=== PATIENT | female | born 1960 | race Caucasian/White ===

== ENCOUNTER 2016-07-29 15:54 | Emergency (ER) | payer MEDICARE, OTHER ==
[~2016-07-29] VITALS: Ht 175.3 cm; Wt 160.0 kg
[~2016-07-29 15:54] MED LIST: AMBI10TA PO; AMLO5 PO; GABA600T PO; PRAD150C PO
[2016-07-29 15:56] VITALS: BP 134/71; PULSE 86; RESP 16; TEMP 97.5; O2SAT 95
--- NOTE | 2016-07-29 16:33 | PD ---
HPI Chief Complaint: Chest Pain Time Seen by Provider: 16:33 Travel History International Travel<30 days: No Contact w/Intl Traveler<30days: No Traveled to known affect area: No History of Present Illness HPI 55-year-old female with history of osteoarthritis and PE in June of this year, currently on Pradaxa, presents to emergency apartment for evaluation of left-sided chest pain. Patient states it was mild yesterday inferior to her breast and to her lateral chest. She states this afternoon it became stabbing, sharp, and very similar to how she felt when she had her PE in June. Patient reports worsening shortness of breath but states she's been short of breath since the initial PE. She has had no hemoptysis. No cough or chest. No fever or chills. No nausea, vomiting, diarrhea. No other symptoms to report. PFSH Past Medical History Autoimmune Disease: No Diminished Hearing: No Endocrine: No Immune Disorder: No Psychiatric: No Reproductive: No Past Surgical History Hysterectomy: Yes Joint Replacement: Yes Other Surgery: Yes (PNEUMOTHORAX RT LUNG X 2.) Social History Alcohol Use: No Tobacco Use: No Substance Use: No Allergies-Medications (Allergen,Severity, Reaction): Coded Allergies: No Known Allergies (Verified , 07/25/16) Reported Meds & Prescriptions Reported Meds & Active Scripts Active Gabapentin 600 Mg Tab 600 Mg PO TID Ambien (Zolpidem Tartrate) 10 Mg Tab 10 Mg PO HS PRN Pradaxa (Dabigatran) 150 Mg Cap 150 Mg PO BID Norvasc (Amlodipine Besylate) 5 Mg Tab 5 Mg PO DAILY Review of Systems Except as stated in HPI: all other systems reviewed are Neg Physical Exam Narrative GENERAL: Obese female patient, in no acute distress SKIN: Warm and dry. HEAD: Atraumatic. Normocephalic. EYES: Pupils equal and round. No scleral icterus. No injection or drainage. ENT: No nasal bleeding or discharge. Mucous membranes pink and moist. NECK: Trachea midline. No JVD. CARDIOVASCULAR: Regular rate and rhythm. No murmur appreciated. RESPIRATORY: No accessory muscle use. Diminished, possibly due to girth. Breath sounds equal bilaterally. GASTROINTESTINAL: Abdomen soft, non-tender, nondistended. Hepatic and splenic margins not palpable. MUSCULOSKELETAL: No obvious deformities. No clubbing. No cyanosis. No edema. NEUROLOGICAL: Awake and alert. No obvious cranial nerve deficits. Motor grossly within normal limits. Normal speech. PSYCHIATRIC: Appropriate mood and affect; insight and judgment normal. Data Data Last Documented VS Vital Signs Date Time Temp Pulse Resp B/P Pulse Ox O2 Delivery O2 Flow Rate FiO2 07/29/16 20:27 20 07/29/16 15:56 97.5 86 134/71 95 Room Air Orders Electrocardiogram (07/29/16 16:24) Basic Metabolic Panel (Bmp) (07/29/16 16:24) B-Type Natriuretic Peptide (07/29/16 16:24) Ckmb (Isoenzyme) Profile (07/29/16 16:24) Complete Blood Count With Diff (07/29/16 16:24) D-Dimer (07/29/16 16:24) Magnesium (Mg) (07/29/16 16:24) Prothrombin Time / Inr (Pt) (07/29/16 16:24) Act Partial Throm Time (Ptt) (07/29/16 16:24) Troponin I (07/29/16 16:24) Lipase (07/29/16 16:24) Chest, Single Ap (07/29/16 16:24) Labs Laboratory Tests Test 07/29/16 17:23 White Blood Count 11.5 TH/MM3 Red Blood Count 4.57 MIL/MM3 Hemoglobin 13.7 GM/DL Hematocrit 39.4 % Mean Corpuscular Volume 86.3 FL Mean Corpuscular Hemoglobin 30.1 PG Mean Corpuscular Hemoglobin 34.9 % Concent Red Cell Distribution Width 13.6 % Platelet Count 317 TH/MM3 Mean Platelet Volume 8.5 FL Neutrophils (%) (Auto) 62.2 % Lymphocytes (%) (Auto) 26.4 % Monocytes (%) (Auto) 8.4 % Eosinophils (%) (Auto) 2.2 % Basophils (%) (Auto) 0.8 % Neutrophils # (Auto) 7.2 TH/MM3 Lymphocytes # (Auto) 3.0 TH/MM3 Monocytes # (Auto) 1.0 TH/MM3 Eosinophils # (Auto) 0.2 TH/MM3 Basophils # (Auto) 0.1 TH/MM3 CBC Comment DIFF FINAL Differential Comment Prothrombin Time 11.8 SEC Prothromb Time International 1.1 RATIO Ratio Activated Partial 45.5 SEC Thromboplast Time D-Dimer Quantitative (PE/DVT) 0.67 MG/L FEU Sodium Level 142 MEQ/L Potassium Level 3.6 MEQ/L Chloride Level 106 MEQ/L Carbon Dioxide Level 29.6 MEQ/L Anion Gap 6 MEQ/L Blood Urea Nitrogen 11 MG/DL Creatinine 0.74 MG/DL Estimat Glomerular Filtration 82 ML/MIN Rate Random Glucose 114 MG/DL Calcium Level 8.4 MG/DL Magnesium Level 2.1 MG/DL Total Creatine Kinase 54 U/L Troponin I LESS THAN 0.02 NG/ML B-Type Natriuretic Peptide 6 PG/ML Lipase 74 U/L [facility] Medical Decision Making Medical Screen Exam Complete: Yes Emergency Medical Condition: Yes Medical Record Reviewed: Yes Differential Diagnosis PE versus muscle spasm versus ACS versus costochondritis versus pleuritic pain versus pneumonia versus pancreatitis Narrative Course 55-year-old female presents to the emergency department for evaluation of left- sided chest pain. Patient appears overall well and without stress. Her vital signs are stable. Workup was initiated in triage. Once a medical bed becomes available, patient will be transferred and care assumed by that provider. Condition: Stable Kathleen Reyez Jul 29, 2016 16:33
--- NOTE | 2016-07-29 16:50 | RADRPT ---
EXAM DATE/TIME: 07/29/2016 16:23 [facility] COMPARISON: CHEST SINGLE AP, July 01, 2016, 16:38. INDICATIONS : Short of breath with chest pains. MEDICAL HISTORY : Blood clot in right lung one month ago. SURGICAL HISTORY : Fusion, cervical. ENCOUNTER: Initial ACUITY: 2 days PAIN SCORE: 7/10 LOCATION: Left chest FINDINGS: Portable AP view of the chest demonstrates a normal-sized cardiac silhouette. No effusion, consolidat ion, or pneumothorax is visualized. The bones and soft tissues demonstrate no acute abnormality. Cerv ical spine hardware is present. CONCLUSION: No acute cardiopulmonary abnormality is identified. Sebastien Tenorio MD on July 29, 2016 at 16:48 Board Certified Radiologist. This report was verified electronically.
[2016-07-29 18:01] LABS: AUTOMATED NEUTROPHIL # 7.2 TH/MM3 (1.8-7.7); BASOPHIL # 0.1 TH/MM3 (0-0.2); BASOPHIL % 0.8 % (0.0-2.0); EOSINOPHIL # 0.2 TH/MM3 (0-0.4); EOSINOPHIL % 2.2 % (0.0-4.0); HEMATOCRIT 39.4 % (35.0-46.0); HEMO FLAGS DIFF FINAL; LYMPH % 26.4 % (9.0-44.0); MEAN CELL VOLUME 86.3 FL (80.0-100.0); MEAN CORPUSCULAR HEMOGLOBIN 30.1 PG (27.0-34.0); MEAN CORPUSCULAR HGB CONC 34.9 % (32.0-36.0); MONO % 8.4 % (0.0-8.0); NEUT % 62.2 % (16.0-70.0); PLATELET COUNT 317 TH/MM3 (150-450); RED BLOOD COUNT 4.57 MIL/MM3 (4.00-5.30); RED CELL DISTRIBUTION WIDTH 13.6 % (11.6-17.2); WHITE BLOOD COUNT 11.5 TH/MM3 (4.0-11.0)
[2016-07-29 18:13] LABS: APTT (PATIENT) 45.5 SEC (24.3-30.1); INTERNATIONAL NORMALIZED RATIO 1.1 RATIO; PROTHROMBIN TIME - PATIENT 11.8 SEC (9.8-11.6)
[2016-07-29 18:23] LABS: ANION GAP 6 MEQ/L (5-15); BICARBONATE 29.6 MEQ/L (21.0-32.0); BLOOD UREA NITROGEN 11 MG/DL (7-18); CHLORIDE 106 MEQ/L (98-107); GLOMERULAR FILTRATION RATE 82 ML/MIN (>89); MAGNESIUM 2.1 MG/DL (1.5-2.5); POTASSIUM 3.6 MEQ/L (3.5-5.1); SODIUM (NA) 142 MEQ/L (136-145)
[2016-07-29 18:31] LABS: CREATINE KINASE 54 U/L (26-192)
--- NOTE | 2016-07-29 19:16 | EKG ---
Date Performed: 07/29/2016 Time Performed: 16:58:18 PTAGE: 55 years EKG: Sinus rhythm WITH OCCASIONAL SUPRAVENTRICULAR PREMATURE COMPLEXES LOW QRS VOLTAGE IN PRECORDIAL LEADS BORDERLINE ECG NO SIGNIFICANT CHANGE FROM PRIOR ELECTROCARDIOGRAM. PREVIOUS TRACING : 07/01/2016 16.04 DOCTOR: Mathieu Rosales Interpretating Date/Time 07/29/2016 19:14:41
[2016-07-29 20:33] VITALS: BP 110/59; PULSE 79; RESP 16; O2SAT 98
[2016-07-29] MEDS ORDERED: IOHEXOL 350 MG/ML 10 ML VIAL (for RAD DIAG) IV ONE (21:27)
--- NOTE | 2016-07-29 21:38 | RADRPT ---
EXAM DATE/TIME: 07/29/2016 21:17 [facility] COMPARISON: CT PULMONARY ANGIOGRAM, July 01, 2016, 17:53. INDICATIONS : Shortness of breath; evaluate for pulmonary embolism. IV CONTRAST: 75 cc Omnipaque 350 (iohexol) IV RADIATION DOSE: 25.75 CTDIvol (mGy) MEDICAL HISTORY : Hypertension. Right lung pneumothorax. SURGICAL HISTORY : Fusion, cervical. ENCOUNTER: Initial ACUITY: 1 day PAIN SCALE: 3/10 LOCATION: chest TECHNIQUE: Volumetric scanning of the chest was performed using a pulmonary embolism protocol MIP images were re constructed. Using automated exposure control and adjustment of the mA and/or kV according to patien t size, radiation dose was kept as low as reasonably achievable to obtain optimal diagnostic quality images. FINDINGS: PULMONARY ARTERIES: No filling defects are seen in the pulmonary arteries through the segmental level. The previously see n emboli within the right middle lobe and lower lobe are no longer evident. LUNGS: Mild rounded atelectasis involving the medial segment of the right middle lobe. No infiltrate or mass observed. PLEURAE: There is no pleural thickening or pleural effusion. MEDIASTINUM: There is good visualization of the great vessels of the middle mediastinum. No evidence of mediastin al or hilar adenopathy/mass. MUSCULOSKELETAL: Spinal fusion plate is partially seen involving the cervical spine. MISCELLANEOUS: The visualized upper abdominal organs demonstrate no acute abnormality. CONCLUSION: 1. No acute pulmonary emboli observed. The previously seen emboli within the right middle lobe and lo wer lobe are no longer evident on the current study. 2. Rounded atelectasis within the right middle lobe. Zackary Eden Jr., MD on July 29, 2016 at 21:33 Board Certified Radiologist. This report was verified electronically.
--- NOTE | 2016-07-29 22:35 | PD ---
Data Data Last Documented VS Vital Signs Date Time Temp Pulse Resp B/P Pulse Ox O2 Delivery O2 Flow Rate FiO2 07/29/16 20:33 79 16 110/59 98 Room Air 07/29/16 15:56 97.5 Orders Electrocardiogram (07/29/16 16:24) Basic Metabolic Panel (Bmp) (07/29/16 16:24) B-Type Natriuretic Peptide (07/29/16 16:24) Ckmb (Isoenzyme) Profile (07/29/16 16:24) Complete Blood Count With Diff (07/29/16 16:24) D-Dimer (07/29/16 16:24) Magnesium (Mg) (07/29/16 16:24) Prothrombin Time / Inr (Pt) (07/29/16 16:24) Act Partial Throm Time (Ptt) (07/29/16 16:24) Troponin I (07/29/16 16:24) Lipase (07/29/16 16:24) Chest, Single Ap (07/29/16 16:24) Ct Pulmonary Angiogram (07/29/16 20:54) Iohexol 350 Inj (Omnipaque 350 Inj) (07/29/16 21:27) Labs Laboratory Tests Test 07/29/16 17:23 White Blood Count 11.5 TH/MM3 Red Blood Count 4.57 MIL/MM3 Hemoglobin 13.7 GM/DL Hematocrit 39.4 % Mean Corpuscular Volume 86.3 FL Mean Corpuscular Hemoglobin 30.1 PG Mean Corpuscular Hemoglobin 34.9 % Concent Red Cell Distribution Width 13.6 % Platelet Count 317 TH/MM3 Mean Platelet Volume 8.5 FL Neutrophils (%) (Auto) 62.2 % Lymphocytes (%) (Auto) 26.4 % Monocytes (%) (Auto) 8.4 % Eosinophils (%) (Auto) 2.2 % Basophils (%) (Auto) 0.8 % Neutrophils # (Auto) 7.2 TH/MM3 Lymphocytes # (Auto) 3.0 TH/MM3 Monocytes # (Auto) 1.0 TH/MM3 Eosinophils # (Auto) 0.2 TH/MM3 Basophils # (Auto) 0.1 TH/MM3 CBC Comment DIFF FINAL Differential Comment Prothrombin Time 11.8 SEC Prothromb Time International 1.1 RATIO Ratio Activated Partial 45.5 SEC Thromboplast Time D-Dimer Quantitative (PE/DVT) 0.67 MG/L FEU Sodium Level 142 MEQ/L Potassium Level 3.6 MEQ/L Chloride Level 106 MEQ/L Carbon Dioxide Level 29.6 MEQ/L Anion Gap 6 MEQ/L Blood Urea Nitrogen 11 MG/DL Creatinine 0.74 MG/DL Estimat Glomerular Filtration 82 ML/MIN Rate Random Glucose 114 MG/DL Calcium Level 8.4 MG/DL Magnesium Level 2.1 MG/DL Total Creatine Kinase 54 U/L Troponin I LESS THAN 0.02 NG/ML B-Type Natriuretic Peptide 6 PG/ML Lipase 74 U/L [facility] Medical Record Reviewed: Yes Supervised Visit with EVIN: Yes Narrative Course I, Dr. Guthrie, have reviewed the advance practice practitioner's documentation and am in agreement, met with the patient face to face, made the diagnosis, and the medical decision making was done by me. *My assessment and Findings: Workup today reveals CBC & BMP Diagram 07/29/16 17:23 Troponin less than 0.02 Lipase 74 BNP 6 R1.1 APTT 45.5 D-dimer 0.67 EKG reveals a sinus rhythm with a rate of 76 normal axis and intervals Last [address] Angiography 07/29/162053 Signed Impressions: Service Date/Time: Friday, July 29, 2016 21:17 - CONCLUSION: 1. No acute pulmonary emboli observed. The previously seen emboli within the right middle lobe and lower lobe are no longer evident on the current study. 2. Rounded atelectasis within the right middle lobe. Zackary Eden Jr., MD Chest X-Ray 07/29/16 1624 Signed Impressions: Service Date/Time: Friday, July 29, 2016 16:23 - CONCLUSION: No acute cardiopulmonary abnormality is identified. Sebastien Tenorio MD Unfortunately there is no evidence of PE. The patient mainly is suffering with pleuritic chest pain. There is no radiation. Coronary disease is considered less likely in this scenario. Stress test may be required as an outpatient. Patient agrees to follow up with primary care provider on August 15. Return indications discussed. Diagnosis Primary Impression: Chest pain Qualified Code: R07.1 - Chest pain on breathing Referrals: Pooja Nowak MD R1 call for appointment Additional Instruction: You have a choice when it comes to health care, and we are glad that you chose [facility]. Hopefully, we have met your expectations on today's visit. You are welcome to return to [facility] at any time, as we are committed to meeting the health care needs of our community. Med/Other Pt SpecificInfo: No Change to Meds Disposition: 01 DISCHARGE HOME Condition: Frankie uHgo MD Jul 29, 2016 22:35
[2016-08-15] MEDS ORDERED: AMBI10TA PO (12:16)
[2016-08-15] MEDS ORDERED: GABA600T PO (15:45)
[2016-09-23] MEDS ORDERED: ZOLP10TA3 PO (12:36)
[2016-12-22] MEDS ORDERED: [UNRECOGNIZED DRUG - SUPPLY] (16:45)
[2016-12-22] MEDS ORDERED: ZOLP10TA3 PO (16:45)
[2016-12-23] MEDS ORDERED: GABA600T PO (12:05)
== END 2016-07-29 23:08 | disposition home or self-care (01) ==
LOC: NEPC 15:54
DX: R07.1 Chest pain on breathing (principal); R06.02 Shortness of breath; R94.31 Abnormal electrocardiogram [ECG] [EKG]
CPT/HCPCS: 71010; 71275; 80048; 82550; 83690; 83735; 83880; 84484; 85025; 85379; 85610; 85730; 93005; 99285; Q9967

== ENCOUNTER 2017-01-08 11:44 | Emergency (ER) | payer MEDICARE ==
[~2017-01-08] VITALS: Ht 175.3 cm; Wt 159.0 kg
[~2017-01-08 11:44] MED LIST changes: -AMBI10TA PO; +ZOLP10TA3 PO; +[UNRECOGNIZED DRUG - SUPPLY]
[2017-01-08 11:46] VITALS: BP 146/67; PULSE 84; RESP 24; TEMP 97.9; O2SAT 96
[2017-01-08] MEDS ORDERED: SODIUM CHLORIDE 0.9% FLUSH 10 ML FLUSH IV FLUSH PRN (12:15)
--- NOTE | 2017-01-08 12:16 | PD ---
HPI Chief Complaint: Chest Pain Time Seen by Provider: 12:05 Travel History International Travel<30 days: No Contact w/Intl Traveler<30days: No Traveled to known affect area: No History of Present Illness HPI 56-year-old female with history of COPD, pulmonary embolism diagnosed in June 2016, presents after being sent by her primary care physician for evaluation of chest pain, shortness of breath, right foot pain. She has been experiencing pain in her right foot when walking for the past 4 weeks. She denies any trauma. Reportedly she was seen by her primary care physician and had an x-ray of the right foot which was normal. Since then she has had pain progressively worsened in the right foot and now also in her right lower leg. Over the past 4-5 days the patient has been experiencing pain in her left and right lower chest underneath her breasts. The pain is a sharp pain that is worse with exertion and worse with inspiration. She does endorse some dyspnea on exertion as well which is new. The patient was placed on Paxil last June when diagnosed PE. She reports that for the most part she has been compliant, she occasionally misses her noon dose. She denies any recent travel or recent surgery, history of coronary artery disease, cough or congestion, wheezing, abdominal pain, nausea or vomiting, diaphoresis, flank pain, dysuria. She has no other complaints. PFSH Past Medical History Hx Anticoagulant Therapy: Yes Autoimmune Disease: No Cardiovascular Problems: Yes Cerebrovascular Accident: Yes Diminished Hearing: No Endocrine: No Hypertension: Yes Immune Disorder: No Implanted Vascular Access Dvce: Yes Psychiatric: No Reproductive: No Respiratory: Yes Immunizations Current: Yes ?: Not Past Surgical History Hysterectomy: Yes Joint Replacement: Yes Other Surgery: Yes (PNEUMOTHORAX RT LUNG X 2.) Social History Alcohol Use: No Tobacco Use: No Substance Use: No Allergies-Medications (Allergen,Severity, Reaction): Coded Allergies: No Known Allergies (Verified , 01/08/17) Reported Meds & Prescriptions Reported Meds & Active Scripts Active Gabapentin 600 Mg Tab 600 Mg PO HS Take 3 pills at night before bed. Zolpidem (Zolpidem Tartrate) 10 Mg Tab 10 Mg PO HS PRN Fill on or after 01/24/17 Zolpidem (Zolpidem Tartrate) 10 Mg Tab 10 Mg PO HS PRN Fill on or after 6/22/17. [Short Walking Boot] 1 Unit .XX DIRECTED Pradaxa (Dabigatran) 150 Mg Cap 150 Mg PO BID Norvasc (Amlodipine Besylate) 5 Mg Tab 5 Mg PO DAILY Review of Systems Except as stated in HPI: all other systems reviewed are Neg Physical Exam Narrative GENERAL: Well-developed well-nourished female in no acute distress SKIN: Warm and dry. No rash, no erythema. HEAD: Atraumatic. Normocephalic. EYES: Pupils equal and round. No scleral icterus. No injection or drainage. ENT: No nasal bleeding or discharge. Mucous membranes pink and moist. NECK: Trachea midline. No JVD. CARDIOVASCULAR: Regular rate and rhythm. No murmur appreciated. RESPIRATORY: No accessory muscle use. Clear to auscultation. Breath sounds equal bilaterally. GASTROINTESTINAL: Abdomen soft, non-tender, nondistended. Hepatic and splenic margins not palpable. MUSCULOSKELETAL: No obvious deformities. There is trace pitting edema in both legs. Negative Homans bilaterally. Some mild tenderness to palpation of the dorsal proximal right foot. There is some tenderness to palpation on the lateral right lower chest wall. There is some tenderness to palpation inferior to the left breast rib cage. NEUROLOGICAL: Awake and alert. No obvious cranial nerve deficits. Motor grossly within normal limits. Normal speech. PSYCHIATRIC: Appropriate mood and affect; insight and judgment normal. Data Data Last Documented VS Vital Signs Date Time Temp Pulse Resp B/P Pulse Ox O2 Delivery O2 Flow Rate FiO2 01/08/17 14:05 69 16 114/64 97 Room Air 01/08/17 11:46 97.9 Orders Electrocardiogram (01/08/17 ) Complete Blood Count With Diff (01/08/17 12:09) Comprehensive Metabolic Panel (01/08/17 12:09) Lipase (01/08/17 12:09) Prothrombin Time / Inr (Pt) (01/08/17 12:09) Act Partial Throm Time (Ptt) (01/08/17 12:09) Iv Access Insert/Monitor (01/08/17 12:09) Ecg Monitoring (01/08/17 12:09) Oximetry (01/08/17 12:09) Sodium Chloride 0.9% Flush (Ns Flush) (01/08/17 12:15) Ckmb (Isoenzyme) Profile (01/08/17 12:09) Magnesium (Mg) (01/08/17 12:09) Troponin I (01/08/17 12:09) Chest, Single Ap (01/08/17 12:09) Ct Pulmonary Angiogram (01/08/17 12:09) Us Leg Venous Doppler (01/08/17 12:09) B-Type Natriuretic Peptide (01/08/17 12:10) Morphine Inj (Morphine Inj) (01/08/17 13:45) Ondansetron Inj (Zofran Inj) (01/08/17 13:45) Iohexol 350 Inj (Omnipaque 350 Inj) (01/08/17 14:30) Labs Laboratory Tests Test 01/08/17 01/08/17 12:15 13:00 White Blood Count 11.5 TH/MM3 Red Blood Count 4.75 MIL/MM3 Hemoglobin 13.8 GM/DL Hematocrit 40.4 % Mean Corpuscular Volume 85.0 FL Mean Corpuscular Hemoglobin 29.1 PG Mean Corpuscular Hemoglobin 34.2 % Concent Red Cell Distribution Width 14.3 % Platelet Count 348 TH/MM3 Mean Platelet Volume 9.0 FL Neutrophils (%) (Auto) 69.4 % Lymphocytes (%) (Auto) 20.5 % Monocytes (%) (Auto) 7.1 % Eosinophils (%) (Auto) 2.1 % Basophils (%) (Auto) 0.9 % Neutrophils # (Auto) 8.0 TH/MM3 Lymphocytes # (Auto) 2.4 TH/MM3 Monocytes # (Auto) 0.8 TH/MM3 Eosinophils # (Auto) 0.2 TH/MM3 Basophils # (Auto) 0.1 TH/MM3 CBC Comment DIFF FINAL Differential Comment B-Type Natriuretic Peptide 2 PG/ML Prothrombin Time 11.0 SEC Prothromb Time International 1.0 RATIO Ratio Activated Partial 34.5 SEC Thromboplast Time Sodium Level 139 MEQ/L Potassium Level 4.1 MEQ/L Chloride Level 105 MEQ/L Carbon Dioxide Level 28.1 MEQ/L Anion Gap 6 MEQ/L Blood Urea Nitrogen 12 MG/DL Creatinine 0.76 MG/DL Estimat Glomerular Filtration 79 ML/MIN Rate Random Glucose 95 MG/DL Calcium Level 8.7 MG/DL Magnesium Level 1.9 MG/DL Total Bilirubin 0.4 MG/DL Aspartate Amino Transf 10 U/L (AST/SGOT) Alanine Aminotransferase 18 U/L (ALT/SGPT) Alkaline Phosphatase 91 U/L Total Creatine Kinase 52 U/L Troponin I LESS THAN 0.02 NG/ML Total Protein 7.5 GM/DL Albumin 3.2 GM/DL Lipase 66 U/L [facility] Medical Decision Making Medical Screen Exam Complete: Yes Emergency Medical Condition: Yes Medical Record Reviewed: Yes Interpretation(s) ekg normal sinus rhythm Differential Diagnosis Pulmonary embolism, costochondritis, rhonchi this, pneumothorax, acute coronary syndrome, pericarditis, myocarditis, DVT Narrative Course Plan is for basic lab work, CT pulmonary angiogram, ultrasound of the right leg. The workup was negative. The pain is reproducible with palpation. I suspect musculoskeletal chest wall pain. She is stable for discharge. Procedures EKG Prior to Arrival: Yes Diagnosis Primary Impression: Chest wall pain Additional Impression: Right leg pain Additional Instructions: Follow-up with your primary care physician. Return for any emergent medical conditions. Med/Other Pt SpecificInfo: No Change to Meds Disposition: 01 DISCHARGE HOME Condition: Stable Ceasar Hinds Jan 08, 2017 12:16
[2017-01-08 12:17] VITALS: BP 145/86; PULSE 78; RESP 20; O2SAT 97
[2017-01-08 12:56] LABS: BASOPHIL # 0.1 TH/MM3 (0-0.2); BASOPHIL % 0.9 % (0.0-2.0); EOSINOPHIL # 0.2 TH/MM3 (0-0.4); EOSINOPHIL % 2.1 % (0.0-4.0); HEMATOCRIT 40.4 % (35.0-46.0); HEMO FLAGS DIFF FINAL; LYMPH % 20.5 % (9.0-44.0); LYMPHOCYTE # 2.4 TH/MM3 (1.0-4.8); MEAN CORPUSCULAR HEMOGLOBIN 29.1 PG (27.0-34.0); MEAN CORPUSCULAR HGB CONC 34.2 % (32.0-36.0); MONO % 7.1 % (0.0-8.0); NEUT % 69.4 % (16.0-70.0); PLATELET COUNT 348 TH/MM3 (150-450); RED BLOOD COUNT 4.75 MIL/MM3 (4.00-5.30); RED CELL DISTRIBUTION WIDTH 14.3 % (11.6-17.2); WHITE BLOOD COUNT 11.5 TH/MM3 (4.0-11.0)
--- NOTE | 2017-01-08 13:01 | RADRPT ---
EXAM DATE/TIME: 01/08/2017 12:28 [facility] COMPARISON: US LEG RIGHT VENOUS DOPPLER, July 01, 2016, 18:26. INDICATIONS : Right leg pain. MEDICAL HISTORY : Hypertension. Deep venous thrombosis. CVA. Anticoagulant therapy, Pradaxa. SURGICAL HISTORY : Hysterectomy. Cervical plate. Right knee surgery. Pneumothorax right lung x2. Bilateral shoulder s urgery. Blood transfusions. ENCOUNTER: Initial ACUITY: 4 - 6 days PAIN SCORE: 5/10 LOCATION: Right leg. TECHNIQUE: Venous ultrasound of the leg was performed from the inguinal ligament to the proximal calf. Real-walter e, color Doppler and spectral tracing, compression and augmentation techniques were used. FINDINGS: There is normal compressibility of the deep venous system from the inguinal region to the proximal ca lf. No echogenic clot is seen in the lumen of the common femoral, femoral, popliteal, and posterior tibial veins. There is a normal response of the venous system to proximal and distal augmentation an d respiration. CONCLUSION: No evidence of DVT. Leonel Lopez MD on January 08, 2017 at 12:59 Board Certified Radiologist. This report was verified electronically.
[2017-01-08 13:26] LABS: APTT (PATIENT) 34.5 SEC (24.3-30.1)
[2017-01-08 13:41] LABS: ANION GAP 6 MEQ/L (5-15); AST (GOT) 10 U/L (15-37); BICARBONATE 28.1 MEQ/L (21.0-32.0); BLOOD UREA NITROGEN 12 MG/DL (7-18); CHLORIDE 105 MEQ/L (98-107); GLOMERULAR FILTRATION RATE 79 ML/MIN (>89); MAGNESIUM 1.9 MG/DL (1.5-2.5); POTASSIUM 4.1 MEQ/L (3.5-5.1); SODIUM (NA) 139 MEQ/L (136-145)
[2017-01-08 13:42] LABS: ALT (GPT) 18 U/L (10-53)
[2017-01-08] MEDS ORDERED: ONDANSETRON HCL 4 MG/2 ML VIAL IV PUSH ONE (13:45)
[2017-01-08] MEDS ORDERED: MORPHINE SULFATE 8 MG/ML INJ IV PUSH ONE (13:45)
[2017-01-08 13:46] LABS: ALKALINE PHOSPHATASE 91 U/L (45-117); TOTAL BILIRUBIN ADULT 0.4 MG/DL (0.2-1.0)
[2017-01-08 13:51] LABS: CREATINE KINASE 52 U/L (26-192)
[2017-01-08 14:00] VITALS: BP 134/59; PULSE 72; RESP 18; O2SAT 98
[2017-01-08 14:05] VITALS: BP 114/64; PULSE 69; RESP 16; O2SAT 97
[2017-01-08] MEDS ORDERED: IOHEXOL 350 MG/ML 10 ML VIAL (for RAD DIAG) IV ONE (14:30)
--- NOTE | 2017-01-08 14:38 | RADRPT ---
EXAM DATE/TIME: 01/08/2017 13:00 [facility] COMPARISON: CHEST SINGLE AP, July 29, 2016, 16:23. INDICATIONS : Short of breath, right foot swelling. MEDICAL HISTORY : 2 pulmonary embolisms SURGICAL HISTORY : None. ENCOUNTER: Initial ACUITY: 1 day PAIN SCORE: 0/10 LOCATION: Bilateral chest FINDINGS: Portable AP view of the chest demonstrates a normal-sized cardiac silhouette. No effusion, consolidat ion, or pneumothorax is visualized. The bones and soft tissues demonstrate no acute abnormality. Cerv ical spine hardware is present. CONCLUSION: No acute cardiopulmonary abnormality is identified. Sebastien Tenorio MD on January 08, 2017 at 14:35 Board Certified Radiologist. This report was verified electronically.
--- NOTE | 2017-01-08 15:04 | RADRPT ---
EXAM DATE/TIME: 01/08/2017 14:23 [facility] COMPARISON: CT PULMONARY ANGIOGRAM, July 29, 2016, 21:17. INDICATIONS : Shortness of breath. IV CONTRAST: 70 cc Omnipaque 350 (iohexol) IV RADIATION DOSE: 26.16 CTDIvol (mGy) MEDICAL HISTORY : Hypertension. Cardiovascular disease SURGICAL HISTORY : None. ENCOUNTER: Initial ACUITY: 1 day PAIN SCALE: 0/10 LOCATION: chest TECHNIQUE: Volumetric scanning of the chest was performed using a pulmonary embolism protocol MIP images were re constructed. Using automated exposure control and adjustment of the mA and/or kV according to patien t size, radiation dose was kept as low as reasonably achievable to obtain optimal diagnostic quality images. DICOM format image data is available electronically for review and comparison. FINDINGS: PULMONARY ARTERIES: No filling defects are seen in the pulmonary arteries through the segmental level. LUNGS: There is no consolidation or pneumothorax . No concerning pulmonary nodule is visualized. PLEURAE: There is no pleural thickening or pleural effusion. MEDIASTINUM: There is good visualization of the great vessels of the middle mediastinum. No evidence of mediastin al or hilar adenopathy/mass. MUSCULOSKELETAL: Within normal limits for patient age. MISCELLANEOUS: The visualized upper abdominal organs demonstrate no acute abnormality. CONCLUSION: 1. No evidence of PE 2. No acute pulmonary infiltrates. Leonel Lopez MD on January 08, 2017 at 14:57 Board Certified Radiologist. This report was verified electronically.
--- NOTE | 2017-01-09 13:39 | EKG ---
Date Performed: 01/08/2017 Time Performed: 12:06:09 PTAGE: 56 years EKG: Sinus rhythm NORMAL ECG Compared to prior tracing no significant change PREVIOUS TRACING : 07/29/2016 16.58 DOCTOR: Dougie Chance Interpretating Date/Time 01/09/2017 13:34:50
[2017-01-20] MEDS ORDERED: PRAD150C PO (13:02)
== END 2017-01-08 16:40 | disposition home or self-care (01) ==
LOC: NEPC 11:44
DX: R07.89 Other chest pain (principal); M79.604 Pain in right leg; I10 Essential (primary) hypertension; R06.02 Shortness of breath; M79.89 Other specified soft tissue disorders; Z86.718 Personal history of other venous thrombosis and embolism; Z79.01 Long term (current) use of anticoagulants; Z86.711 Personal history of pulmonary embolism
CPT/HCPCS: 71010; 71275; 80053; 82550; 83690; 83735; 83880; 84484; 85025; 85610; 85730; 93005; 93971; 96374; 96375; 99285; J2270; J2405; Q9967

== ENCOUNTER 2017-05-26 21:40 | Observation (INO) | payer MEDICARE, OTHER ==
[~2017-05-26] VITALS: Ht 175.3 cm; Wt 160.0 kg
[~2017-05-26 21:40] MED LIST changes: +CLAR5TAB9 PO
[2017-05-26 21:42] VITALS: BP 179/83; PULSE 85; RESP 18; TEMP 97.6; O2SAT 98
[2017-05-26 21:58] VITALS: BP 172/79; PULSE 80; RESP 20; O2SAT 96
--- NOTE | 2017-05-26 22:09 | PD ---
HPI Chief Complaint: Respiratory Symptoms Time Seen by Provider: 22:01 Travel History International Travel<30 days: No Contact w/Intl Traveler<30days: No Traveled to known affect area: No History of Present Illness HPI The patient is a 56 year old female who presents to the [facility] emergency department with a history of neck pain, shortness of breath, and pain with swelling in right leg. The patient's first symptom was shortness of breath. She reports that it began a few days ago. She reports that the shortness of breath this with exertion. She reports having an associated warning cough. Over the last week, she has had postnasal drip in the morning with a cough productive of yellow sputum. She has had nausea without vomiting. She has had diarrhea yesterday. She had Diarrhea x2. Her Stool was yellow in color. She reports that yesterday she developed right sided neck pain. She has a history of Arnold Chiari malformation. In the past she had numbness in her face related to it. She denies any other neurologic symptoms associated with this. She is unsure whether she injured her neck versus left on it wrong. She cannot recall if she awakened with it. She denies having any chest pains. She denies ever having a stress test done previously. She denies any history of history of CAD. She is on Pradaxa for a history of PE. She was late taking one dose a few days ago by 2 hours. The last symptom that she developed today was swelling and pain in the right leg. She reports that the swelling goes all the way up her right leg. She reports that recently within the last week she had a cast removed from her leg related to compression fractures in her foot. On review of systems otherwise, the patient denies having any fevers, abdominal pain, vomiting, urinary symptoms, or neurologic symptoms. PCP: [facility] Past Medical History Narrative Medical The patient's past medical history is significant for chronic back pain, pulmonary embolism, COPD-not currently on inhalers as they were not helping, sleep apnea-not able to use the CPAP, Arnold Chiari malformation, TIA at 28 years of age, Hypertension, Hx Anticoagulant Therapy: Yes (pradaxa) Asthma: Yes Autoimmune Disease: No Cardiovascular Problems: Yes COPD: Yes Cerebrovascular Accident: Yes Diminished Hearing: No Endocrine: No Hypertension: Yes Immune Disorder: No Implanted Vascular Access Dvce: Yes Psychiatric: No Reproductive: No Respiratory: Yes (HX OF PE) Immunizations Current: Yes Tetanus Vaccination: Unknown Influenza Vaccination: No ?: Not Past Surgical History Narrative Surgical The patient's past surgical history is significant for cervical spine surgery, hysterectomy, chest tube for pneumothorax, shoulder surgery, knee surgery. Hysterectomy: Yes Joint Replacement: Yes Thoracic Surgery: Yes (CERVICAL PLATE) Other Surgery: Yes (PNEUMOTHORAX RT LUNG X 2.) Social History Alcohol Use: No Tobacco Use: No (quit 4 years ago.) Substance Use: No Allergies-Medications (Allergen,Severity, Reaction): Coded Allergies: No Known Allergies (Verified Allergy, Unknown, 05/27/17) Reported Meds & Prescriptions Reported Meds & Active Scripts Active Zolpidem (Zolpidem Tartrate) 10 Mg Tab 10 Mg PO HS PRN Claritin-D 12 HR (Loratadine-Pseudoephedrine 12 HR) 5-120 Mg Tab 1 Tab PO BID Pradaxa (Dabigatran) 150 Mg Cap 150 Mg PO BID Gabapentin 600 Mg Tab 600 Mg PO HS Take 3 pills at night before bed. [Short Walking Boot] 1 Unit .XX DIRECTED Norvasc (Amlodipine Besylate) 5 Mg Tab 5 Mg PO DAILY Review of Systems Except as stated in HPI: all other systems reviewed are Neg General / Constitutional: No: Fever Eyes: No: Visual changes HENT: Positive: Congestion, Neck Pain, No: Headaches, Rhinorrhea, Neck Stiffness Cardiovascular: Positive: Dyspnea on exertion, No: Chest Pain or Discomfort Respiratory: Positive: Cough, Shortness of Breath Gastrointestinal: Positive: Nausea, Diarrhea, Changes in Bowel Habits, No: Vomiting, Abdominal Pain, Indigestion, Loss of Appetite Genitourinary: No: Urgency, Frequency, Dysuria Musculoskeletal: No: Pain Skin: No Rash Neurologic: No: Weakness, Focal Abnormalities, Change in Mentation, Slurred Speech, Sensory Disturbance Psychiatric: No: Depression Endocrine: No: Polydipsia Hematologic/Lymphatic: No: Easy Bruising Physical Exam Narrative General: The patient is well-developed well-nourished female in no acute distress. Head and Neck exam: Head is normocephalic atraumatic. Eyes: EOMI, pupils are equal round and reactive to light. Nose: Midline septum with pink mucous membranes Mouth: Dentition unremarkable. Moist mucus membranes. Posterior oropharynx is not erythematous. No tonsillar hypertrophy. Uvula midline. Airway patent. Neck: No palpable lymphadenopathy. No nuchal rigidity. No thyromegaly. The patient reports having musculoskeletal tenderness on palpation along the paraspinal musculature most prominent on the right side at the base of the occiput and upper cervical paraspinal musculature. Cardiovascular: Regular rate and rhythm without murmurs, gallops, or rubs. Lungs: Clear to auscultation bilaterally. No wheezes, rhonchi, or rales. Abdomen: Soft, without tenderness to palpation in all 4 quadrants of the abdomen. No guarding, rebound, or rigidity. Normal bowel sounds are audible. No tenderness on palpation of McBurney's point. Extremities: No clubbing or cyanosis. The patient has 1+ pitting edema of the right lower extremity, trace pedal edema left lower extremity. The Patient reports calf tenderness on palpation with positive Homans sign on the right. 2+ pulses in all 4 extremities. No erythema or ecchymosis. No rashes noted. Back: No spinous process tenderness to palpation. No costovertebral angle tenderness to palpation. Neurologic Exam: Grossly nonfocal. Skin Exam: No rash noted. Intact skin that is warm and dry. Data Data Last Documented VS Vital Signs Date Time Temp Pulse Resp B/P (MAP) Pulse Ox O2 Delivery O2 Flow Rate FiO2 05/27/17 00:16 20 97 Room Air 05/27/17 00:16 75 05/26/17 21:42 97.6 Orders Orders Complete Blood Count With Diff (05/26/17 22:17) Comprehensive Metabolic Panel (05/26/17 22:17) B-Type Natriuretic Peptide (05/26/17 22:17) Act Partial Throm Time (Ptt) (05/26/17 22:17) Prothrombin Time / Inr (Pt) (05/26/17 22:17) Magnesium (Mg) (05/26/17 22:17) Ckmb (Isoenzyme) Profile (05/26/17 22:17) Troponin I (05/26/17 22:17) Urinalysis - C+S If Indicated (05/26/17 22:17) Iv Access Insert/Monitor (05/26/17 22:17) Electrocardiogram (05/26/17 22:17) Ecg Monitoring (05/26/17 22:17) Oximetry (05/26/17 22:17) Oxygen Administration (05/26/17 22:17) Chest, Single Ap (05/26/17 22:17) Sodium Chloride 0.9% Flush (Ns Flush) (05/26/17 22:30) Us Leg Venous Doppler (05/26/17 22:17) Ct Cerv Spine W/O Contrast (05/26/17 22:42) Aspirin Chew (Aspirin Chew) (05/26/17 22:45) Ondansetron Inj (Zofran Inj) (05/26/17 22:45) Ct Pulmonary Angiogram (05/26/17 23:19) Iohexol 350 Inj (Omnipaque 350 Inj) (05/26/17 23:30) Admit Order (Ed Use Only) (05/27/17 00:22) Labs Laboratory Tests Test 05/26/17 22:20 05/26/17 23:50 White Blood Count 11.4 TH/MM3 Red Blood Count 4.72 MIL/MM3 Hemoglobin 13.7 GM/DL Hematocrit 40.8 % Mean Corpuscular Volume 86.5 FL Mean Corpuscular Hemoglobin 29.1 PG Mean Corpuscular Hemoglobin Concent 33.7 % Red Cell Distribution Width 14.2 % Platelet Count 313 TH/MM3 Mean Platelet Volume 8.2 FL Neutrophils (%) (Auto) 62.0 % Lymphocytes (%) (Auto) 26.1 % Monocytes (%) (Auto) 8.8 % Eosinophils (%) (Auto) 2.5 % Basophils (%) (Auto) 0.6 % Neutrophils # (Auto) 7.1 TH/MM3 Lymphocytes # (Auto) 3.0 TH/MM3 Monocytes # (Auto) 1.0 TH/MM3 Eosinophils # (Auto) 0.3 TH/MM3 Basophils # (Auto) 0.1 TH/MM3 CBC Comment DIFF FINAL Differential Comment Prothrombin Time 10.5 SEC Prothromb Time International Ratio 1.0 RATIO Activated Partial Thromboplast Time 39.4 SEC Blood Urea Nitrogen 11 MG/DL Creatinine 0.94 MG/DL Random Glucose 85 MG/DL Total Protein 7.9 GM/DL Albumin 3.3 GM/DL Calcium Level 8.4 MG/DL Magnesium Level 2.1 MG/DL Alkaline Phosphatase 92 U/L Aspartate Amino Transf (AST/SGOT) 19 U/L Alanine Aminotransferase (ALT/SGPT) 24 U/L Total Bilirubin 0.2 MG/DL Sodium Level 138 MEQ/L Potassium Level 3.9 MEQ/L Chloride Level 103 MEQ/L Carbon Dioxide Level 29.1 MEQ/L Anion Gap 6 MEQ/L Estimat Glomerular Filtration Rate 62 ML/MIN Total Creatine Kinase 69 U/L Troponin I LESS THAN 0.02 NG/ML B-Type Natriuretic Peptide 6 PG/ML Urine Color LIGHT-YELLOW Urine Turbidity CLEAR Urine pH 7.0 Urine Specific [place] 1.046 Urine Protein NEG mg/dL Urine Glucose (UA) NEG mg/dL Urine Ketones NEG mg/dL Urine Occult Blood NEG Urine Nitrite NEG Urine Bilirubin NEG Urine Urobilinogen LESS THAN 2.0 MG/DL Urine Leukocyte Esterase NEG Urine RBC 1 /hpf Urine WBC 1 /hpf Urine Squamous Epithelial Cells 4 /hpf Urine Bacteria RARE /hpf Microscopic Urinalysis Comment CULT NOT INDICATED MDM Medical Decision Making Medical Screen Exam Complete: Yes Emergency Medical Condition: Yes Medical Record Reviewed: Yes Interpretation(s) Last Impressions Lower Extremity Ultrasound 05/26/172216 Signed Impressions: Service Date/Time: Friday, May 26, 2017 22:35 - CONCLUSION: No venous thrombosis of the right lower extremity. Sebastien Pool MD Chest X-Ray 05/26/172216 Signed Impressions: Service Date/Time: Friday, May 26, 2017 22:24 - CONCLUSION: No evidence of acute cardiopulmonary disease. Sebastien Pool MD Differential Diagnosis Musculoskeletal strain of the neck, versus pulmonary embolism, versus new-onset congestive heart failure, versus acute coronary syndrome, versus DVT Narrative Course During the course of the patients emergency department visit, the patients history, examination, and differential diagnosis were reviewed with the patient. The patient was placed on a hall monitor with oximetry and frequent blood pressure monitoring. The patient had IV access obtained and blood work sent for analysis. The patient was initially provided aspirin 324 mg by mouth 1. The patients laboratory studies were reviewed and remarkable for a white count of 11.4, hemoglobin 13.7, platelets 313 with 8.8 monocytes. CMP is remarkable for a GFR of 62, calcium 8.4, CPK 69, troponin I less than 0.02, BNP 6, albumin 3.3, PTT 39.4. Radiology studies were reviewed and remarkable for a chest x-ray that shows no evidence of acute cardiopulmonary disease. Ultrasound of the right lower extremity reveals no evidence of venous thrombosis. CT scan of the neck showed no fracture or subluxation of the cervical spine, however severe degenerative disc disease left greater than the right with facet osteoarthritis at C3-C4, moderate left foraminal stenosis, long segment fusion from C4 to C7 without evidence of acute complication. CTA to rule out PE shows no evidence of pulmonary embolism. No other acute abnormality. Given the patient's neck pain and worsening shortness of breath with no prior history of stress testing, the patient will be admitted to the chest pain center for atypical symptoms that could be related to an acute coronary syndrome for rule out serial cardiac enzyme protocol followed by stress testing. The patients results were discussed with the patient, including the plan of care. I explained that further testing and/ or monitoring is indicated based on the patients history, examination, and/ or laboratory findings. Therefore, I recommended admission for additional evaluation. The patient expressed understanding and was agreeable with this plan. The patient was admitted to the hospital in stable condition and sent to a bed under the care of chest pain center. Diagnosis Primary Impression: Shortness of breath Additional Impression: Neck pain on right side Admitting Information Admitting Physician Requests: Observation Azalia Celeste MD May 26, 2017 22:09
[2017-05-26] MEDS ORDERED: SODIUM CHLORIDE 0.9% FLUSH 10 ML FLUSH IVF PRN (22:30)
[2017-05-26] MEDS ORDERED: ONDANSETRON HCL 4 MG/2 ML VIAL IV PUSH ONE (22:45)
[2017-05-26] MEDS ORDERED: ASPIRIN 81 MG CHEW TAB CHEW ONE (22:45)
[2017-05-26 22:47] LABS: AUTOMATED NEUTROPHIL # 7.1 TH/MM3 (1.8-7.7); BASOPHIL # 0.1 TH/MM3 (0-0.2); BASOPHIL % 0.6 % (0.0-2.0); EOSINOPHIL # 0.3 TH/MM3 (0-0.4); EOSINOPHIL % 2.5 % (0.0-4.0); HEMATOCRIT 40.8 % (35.0-46.0); HEMO FLAGS DIFF FINAL; LYMPH % 26.1 % (9.0-44.0); MEAN CELL VOLUME 86.5 FL (80.0-100.0); MEAN CORPUSCULAR HEMOGLOBIN 29.1 PG (27.0-34.0); MEAN CORPUSCULAR HGB CONC 33.7 % (32.0-36.0); MONO % 8.8 % (0.0-8.0); PLATELET COUNT 313 TH/MM3 (150-450); RED BLOOD COUNT 4.72 MIL/MM3 (4.00-5.30); RED CELL DISTRIBUTION WIDTH 14.2 % (11.6-17.2); WHITE BLOOD COUNT 11.4 TH/MM3 (4.0-11.0)
--- NOTE | 2017-05-26 22:58 | RADRPT ---
EXAM DATE/TIME: 05/26/2017 22:24 [facility] COMPARISON: CHEST SINGLE AP, January 08, 2017, 13:00. INDICATIONS : Shortness of breath. MEDICAL HISTORY : Hypertension. Cardiovascular disease. SURGICAL HISTORY : Cervical plate. ENCOUNTER: Initial ACUITY: 1 week PAIN SCORE: 0/10 LOCATION: Bilateral chest FINDINGS: A single view of the chest demonstrates the lungs to be symmetrically aerated without evidence of mas s, infiltrate or effusion. The cardiomediastinal contours are unremarkable. Osseous structures are intact. CONCLUSION: No evidence of acute cardiopulmonary disease. Sebastien Pool MD on May 26, 2017 at 22:56 Board Certified Radiologist. This report was verified electronically.
[2017-05-26 23:00] LABS: APTT (PATIENT) 39.4 SEC (24.3-30.1); PROTHROMBIN TIME - PATIENT 10.5 SEC (9.8-11.6)
[2017-05-26 23:06] LABS: ANION GAP 6 MEQ/L (5-15); AST (GOT) 19 U/L (15-37); BICARBONATE 29.1 MEQ/L (21.0-32.0); BLOOD UREA NITROGEN 11 MG/DL (7-18); CHLORIDE 103 MEQ/L (98-107); GLOMERULAR FILTRATION RATE 62 ML/MIN (>89); MAGNESIUM 2.1 MG/DL (1.5-2.5); POTASSIUM 3.9 MEQ/L (3.5-5.1); SODIUM (NA) 138 MEQ/L (136-145)
[2017-05-26 23:07] LABS: ALT (GPT) 24 U/L (10-53)
[2017-05-26 23:11] LABS: ALKALINE PHOSPHATASE 92 U/L (45-117); TOTAL BILIRUBIN ADULT 0.2 MG/DL (0.2-1.0)
[2017-05-26 23:15] LABS: CREATINE KINASE 69 U/L (26-192)
--- NOTE | 2017-05-26 23:25 | RADRPT ---
EXAM DATE/TIME: 05/26/2017 22:35 [facility] COMPARISON: US LEG RIGHT VENOUS DOPPLER, January 08, 2017, 12:28. INDICATIONS : Right leg swelling. MEDICAL HISTORY : Chronic obstructive pulmonary disease. Cerebrovascular accident. Hypertension. SURGICAL HISTORY : Hysterectomy. Right knee surgery. Bilateral shoulder surgery. ENCOUNTER: Subsequent ACUITY: 1 day PAIN SCORE: 8/10 LOCATION: Right leg. TECHNIQUE: Venous ultrasound of the leg was performed from the inguinal ligament to the proximal calf. Real-walter e, color Doppler and spectral tracing, compression and augmentation techniques were used. FINDINGS: There is normal compressibility of the deep venous system from the inguinal region to the proximal ca lf. No echogenic clot is seen in the lumen of the common femoral, femoral, popliteal, and posterior tibial veins. There is a normal response of the venous system to proximal and distal augmentation an d respiration. CONCLUSION: No venous thrombosis of the right lower extremity. Sebastien Pool MD on May 26, 2017 at 23:23 Board Certified Radiologist. This report was verified electronically.
[2017-05-26] MEDS ORDERED: IOHEXOL 350 MG/ML 10 ML VIAL (for RAD DIAG) IVCONTRAST ONE (23:30)
--- NOTE | 2017-05-26 23:43 | RADRPT ---
EXAM DATE/TIME: 05/26/2017 23:19 [facility] COMPARISON: No previous studies available for comparison. INDICATIONS : Neck pain. No known injury. RADIATION DOSE: 33.51 CTDIvol (mGy) MEDICAL HISTORY : None SURGICAL HISTORY : Fusion, cervical. ENCOUNTER: Initial ACUITY: 1 week PAIN SCALE: 8/10 LOCATION: neck TECHNIQUE: Volumetric scanning of the cervical spine was performed. Multiplanar reconstructions in the sagittal, coronal and oblique axial planes were performed. Using automated exposure control and adjustment o f the mA and/or kV according to patient size, radiation dose was kept as low as reasonably achievable to obtain optimal diagnostic quality images. DICOM format image data is available electronically f or review and comparison. FINDINGS: VERTEBRAE: Normal vertebral body height. ALIGNMENT: No evidence of subluxation. There is mild osteoarthritis anteriorly at C1/C2. C2-C3: The bony spinal canal is normal in size. No evidence of disc bulge or herniation. The neural forami na are bilaterally patent. C3-C4: The disc as severe loss of height. There is endplate sclerosis and mild, circumferential osseous ridg ing. Moderate bilateral uncovertebral and facet osteoarthritis present. There is mild right and moder ate left foraminal stenosis. C4-C5: Previous fusion with anterior instrumentation. Solid bony bridging in normal alignment. Mild residual foraminal encroachment on the left. C5-C6: Previous fusion with anterior instrumentation. Solid bony bridging in normal alignment. No significan t recurrent or residual foraminal or spinal stenosis. C6-C7: Previous fusion with anterior instrumentation. Solid bony bridging in normal alignment. No evidence o f recurrent or residual foraminal or spinal stenosis. C7-T1: Disc height within normal limits. There is mild bilateral facet osteoarthritis. No foraminal or spina l stenosis. Perivertebral soft tissues are within normal limits. CONCLUSION: 1. No fracture or subluxation of the cervical spine. 2. Severe degenerative disc disease and left greater than right uncovertebral and facet osteoarthriti s at C3/C4. There is moderate left foraminal stenosis. 3. Long segment fusion from C4 to C7, all solidly bridged and without evidence of acute complication. Sebastien Pool MD on May 26, 2017 at 23:36 Board Certified Radiologist. This report was verified electronically.
--- NOTE | 2017-05-26 23:54 | RADRPT ---
EXAM DATE/TIME: 05/26/2017 23:25 [facility] COMPARISON: CT PULMONARY ANGIOGRAM, January 08, 2017, 14:23. INDICATIONS : Shortness of breath. IV CONTRAST: 80 cc Omnipaque 350 (iohexol) IV RADIATION DOSE: 23.38 CTDIvol (mGy) MEDICAL HISTORY : Hypertension. Chronic obstructive pulmonary disease. PE. SURGICAL HISTORY : None. ENCOUNTER: Initial ACUITY: 1 day PAIN SCALE: 0/10 LOCATION: chest TECHNIQUE: Volumetric scanning of the chest was performed using a pulmonary embolism protocol MIP images were re constructed. Using automated exposure control and adjustment of the mA and/or kV according to patien t size, radiation dose was kept as low as reasonably achievable to obtain optimal diagnostic quality images. DICOM format image data is available electronically for review and comparison. Follow-up recommendations for detected pulmonary nodules are based at a minimum on nodule size and pa tient risk factors according to Fleischner Society Guidelines. FINDINGS: PULMONARY ARTERIES: No filling defects are seen in the pulmonary arteries through the segmental level. LUNGS: There is no consolidation or pneumothorax . No concerning pulmonary nodule is visualized. PLEURAE: There is no pleural thickening or pleural effusion. MEDIASTINUM: There is good visualization of the great vessels of the middle mediastinum. No evidence of mediastin al or hilar adenopathy/mass. MUSCULOSKELETAL: Within normal limits for patient age. MISCELLANEOUS: The visualized upper abdominal organs demonstrate no acute abnormality. CONCLUSION: No PE or other acute abnormality demonstrated. Sebastien Pool MD on May 26, 2017 at 23:46 Board Certified Radiologist. This report was verified electronically.
[2017-05-27] VITALS (9 sets, daily range): BP systolic 130–162; BP diastolic 59–75; PULSE 71–85; RESP 16–22; TEMP 97.6–98.1; O2SAT 94–97
[2017-05-27 00:12] LABS: BACTERIA, URINE RARE /hpf; BLOOD, URINE NEG (NEG); COMMENT (UR) CULT NOT INDICATED; CULTURE IF INDICATED CULT NOT INDICATED; GLUCOSE,URINE NEG (NEG); KETONE, URINE NEG (NEG); NITRITE,URINE NEG (NEG); SQUAMOUS EPITHELIAL CELL URINE 4 /hpf (0-5); URINE COLOR LIGHT-YELLOW (YELLW/STRAW)
[2017-05-27] MEDS ORDERED: ACETAMINOPHEN 500 MG CPLT PO PRN (01:00)
[2017-05-27] MEDS ORDERED: SODIUM CHLORIDE 0.9% FLUSH 10 ML FLUSH IV FLUSH PRN (01:00)
[2017-05-27 01:56] LABS: CREATINE KINASE 73 U/L (26-192)
[2017-05-27] MEDS ORDERED: ZOLPIDEM TARTRATE 10 MG TAB PO ONE (03:00)
[2017-05-27] MEDS ORDERED: GABAPENTIN 300 MG CAP PO ONE (03:00)
[2017-05-27] MEDS ORDERED: DABIGATRAN ETEXILATE 150 MG CAP PO ONE (03:00)
[2017-05-27 05:20] LABS: CREATINE KINASE 73 U/L (26-192)
[2017-05-27] MEDS ORDERED: ONDANSETRON HCL 4 MG/2 ML VIAL IV PUSH PRN (08:30)
[2017-05-27] MEDS ORDERED: amLODIPine BESYLATE 5 MG TAB PO SCH (09:00)
[2017-05-27] MEDS ORDERED: SODIUM CHLORIDE 0.9% FLUSH 10 ML FLUSH IV FLUSH SCH (09:00)
[2017-05-27] MEDS ORDERED: REGADENOSON INJ 0.4 MG/5 ML SYR ONE (09:28)
--- NOTE | 2017-05-27 09:44 | HHI.HP ---
[facility] Primary Care Physician Eduarda Rosales MD Chief Complaint Shortness of breath, neck pain, and swollen right leg History of Present Illness This is a 56-year-old female with history of obesity, pulmonary embolus, hypertension, COPD , recent stress fractures of her right foot that presents to ED with several complaints. Patient states that her right leg began to swell. Denies calf pain. Denies recent trauma. Patient also complains of some shortness of breath. States she generally does have some shortness of breath but it seems as if over last couple weeks she become short of breath easier. She states also that her neck is been bothering her. She does it history of neck issues. She has a fusion C4 to C7. Denies numbness tingling or weakness in her extremities. Denies chest discomfort. Patient voices compliance with Pradaxa. Review of Systems General: Patient denies fevers, chills recent, and recent travel HEENT: Patient denies headache, sore throat, difficulty swallowing. Cardiovascular: Has the chest discomfort as mentioned above. Denies sensation of heart beating rapidly or irregularly. No syncope. Denies diaphoresis. Respiratory: She has been short of breath. Denies inspirational chest discomfort. Denies coughing wheezing or hemoptysis. GI: Patient denies nausea, vomiting, diarrhea, abdominal pain, bloody stools. Musculoskeletal: When the swelling to her right leg and looks at the leg and states that it doesn't look bad at all now. She states it was much worse last evening. Right foot is still painful.. Patient denies joint pain or edema. Denies calf pain. Neurovascular: Patient denies numbness, tingling, weakness in extremities. Denies headache. Endocrine: Denies polyuria and polydipsia. Hematologic: Denies easy bruising. Skin: Denies rash or itching. Past Family Social History Allergies: Coded Allergies: No Known Allergies (Verified Allergy, Unknown, 05/27/17) Past Medical History Pulmonary embolus July 01, 2016. Hypertension, COPD, obesity. Denies hyperlipidemia and known CAD. Distress fracture of her right foot recently. Has history of tobacco abuse but quit in 2012. Past Surgical History Cervical fusion hysterectomy, shoulder surgery, and knee surgery. Reported Medications Reported Meds & Active Scripts Active Zolpidem (Zolpidem Tartrate) 10 Mg Tab 10 Mg PO HS PRN Claritin-D 12 HR (Loratadine-Pseudoephedrine 12 HR) 5-120 Mg Tab 1 Tab PO BID Pradaxa (Dabigatran) 150 Mg Cap 150 Mg PO BID Gabapentin 600 Mg Tab 600 Mg PO HS Take 3 pills at night before bed. [Short Walking Boot] 1 Unit .XX DIRECTED Norvasc (Amlodipine Besylate) 5 Mg Tab 5 Mg PO DAILY Active Ordered Medications Current Medications Medications (Trade) Dose Ordered Sig/Jodi Route Start Time Stop Time Status Last Admin (NS Flush) 2 ml UNSCH PRN IV FLUSH 05/27/17 01:00 (NS Flush) 2 ml BID IV FLUSH 05/27/17 09:00 (Tylenol) 500 mg Q4H PRN PO 05/27/17 01:00 (Norvasc) 5 mg DAILY PO 05/27/17 09:00 05/27/17 08:31 (Zofran Inj) 4 mg Q6H PRN IV PUSH 05/27/17 08:30 05/27/17 08:34 Family History Denies family history of CAD. Social History Patient quit smoking in 2012. Denies alcohol or illicit drug use. Physical Exam Vital Signs Vital Signs Date Time Temp Pulse Resp B/P (MAP) Pulse Ox O2 Delivery O2 Flow Rate FiO2 05/27/17 08:14 79 05/27/17 07:19 98.1 79 22 162/75 (104) 94 05/27/17 04:33 97.9 73 20 139/59 (85) 94 05/27/17 02:30 72 05/27/17 02:00 97.8 71 16 154/71 (98) 97 05/27/17 01:58 05/27/17 01:06 97 05/27/17 00:16 20 97 Room Air 05/27/17 00:16 97 Room Air 05/27/17 00:16 75 20 155/72 (99) 97 Room Air 05/26/17 21:58 80 20 172/79 (110) 96 Room Air 05/26/17 21:42 97.6 85 18 179/83 (115) 98 Physical Exam GENERAL: This is a well-nourished, well-developed patient, in no apparent distress. Patient is obese at 160 kg. Patient speaks in clear complete sentences. Patient is pleasant. HEENT: Head is atraumatic and normocephalic. Neck is supple without lymphadenopathy and trachea is midline. No JVD or carotid bruits. CARDIOVASCULAR: Regular rate and rhythm without murmurs, gallops, or rubs. RESPIRATORY: Clear to auscultation. Breath sounds equal bilaterally. No wheezes , rales, or rhonchi. Chest wall is nontender. No use of accessory muscles. GASTROINTESTINAL: Abdomen is nontender, nondistended. Abdomen soft. No obvious pulsatile mass or bruit. No CVA tenderness. Strong femoral pulses bilaterally. Normal bowel sounds in all quadrants. MUSCULOSKELETAL: Patient is moving upper and lower extremities freely. I cannot appreciate any swelling of the right leg. Similar in size to the left. No calf tenderness or edema, no Homans sign. Strong pulses in upper and lower extremities. There is some discomfort with range of motion of cervical spine however no spinous process point tenderness. NEUROLOGICAL: Patient is alert and oriented. Cranial nerves 2-12 are grossly intact. No focal deficits and speech is clear. Strong investigator welfare strength bilaterally. SKIN: No rash and turgor is normal. Laboratory Laboratory Tests Test 05/26/17 22:20 05/26/17 23:50 05/27/17 01:20 05/27/17 04:20 White Blood Count 11.4 Red Blood Count 4.72 Hemoglobin 13.7 Hematocrit 40.8 Mean Corpuscular Volume 86.5 Mean Corpuscular Hemoglobin 29.1 Mean Corpuscular Hemoglobin Concent 33.7 Red Cell Distribution Width 14.2 Platelet Count 313 Mean Platelet Volume 8.2 Neutrophils (%) (Auto) 62.0 Lymphocytes (%) (Auto) 26.1 Monocytes (%) (Auto) 8.8 Eosinophils (%) (Auto) 2.5 Basophils (%) (Auto) 0.6 Neutrophils # (Auto) 7.1 Lymphocytes # (Auto) 3.0 Monocytes # (Auto) 1.0 Eosinophils # (Auto) 0.3 Basophils # (Auto) 0.1 CBC Comment DIFF FINAL Differential Comment Prothrombin Time 10.5 Prothromb Time International Ratio 1.0 Activated Partial Thromboplast Time 39.4 Blood Urea Nitrogen 11 Creatinine 0.94 Random Glucose 85 Total Protein 7.9 Albumin 3.3 Calcium Level 8.4 Magnesium Level 2.1 Alkaline Phosphatase 92 Aspartate Amino Transf (AST/SGOT) 19 Alanine Aminotransferase (ALT/SGPT) 24 Total Bilirubin 0.2 Sodium Level 138 Potassium Level 3.9 Chloride Level 103 Carbon Dioxide Level 29.1 Anion Gap 6 Estimat Glomerular Filtration Rate 62 Total Creatine Kinase 69 73 73 Troponin I LESS THAN 0.02 LESS THAN 0.02 LESS THAN 0.02 B-Type Natriuretic Peptide 6 Urine Color LIGHT-YELLOW Urine Turbidity CLEAR Urine pH 7.0 Urine Specific [place] 1.046 Urine Protein NEG Urine Glucose (UA) NEG Urine Ketones NEG Urine Occult Blood NEG Urine Nitrite NEG Urine Bilirubin NEG Urine Urobilinogen LESS THAN 2.0 Urine Leukocyte Esterase NEG Urine RBC 1 Urine WBC 1 Urine Squamous Epithelial Cells 4 Urine Bacteria RARE Microscopic Urinalysis Comment CULT NOT INDICATED Result Diagram: 05/26/17221905/26/172219 Imaging Last [address] Angiography 05/26/172318 Signed Impressions: Service Date/Time: Friday, May 26, 2017 23:25 - CONCLUSION: No PE or other acute abnormality demonstrated. Sebastien Pool MD Cervical Spine CT 05/26/172241 Signed Impressions: Service Date/Time: Friday, May 26, 2017 23:19 - CONCLUSION: 1. No fracture or subluxation of the cervical spine. 2. Severe degenerative disc disease and left greater than right uncovertebral and facet osteoarthritis at C3/C4. There is moderate left foraminal stenosis. 3. Long segment fusion from C4 to C7, all solidly bridged and without evidence of acute complication. Sebastien Pool MD Lower Extremity Ultrasound 05/26/172216 Signed Impressions: Service Date/Time: Friday, May 26, 2017 22:35 - CONCLUSION: No venous thrombosis of the right lower extremity. Sebastien Pool MD Chest X-Ray 05/26/172216 Signed Impressions: Service Date/Time: Friday, May 26, 2017 22:24 - CONCLUSION: No evidence of acute cardiopulmonary disease. Sebastien Pool MD Course EKGs have sinus rhythm without significant ST segment depressions or elevations. Caprini VTE Risk Assessment Caprini VTE Risk Assessment: Mod/High Risk (score >= 2) Caprini Risk Assessment Model Point Value = 1 Point Value = 2 Point Value = 3 Point Value = 5 Age 41-60 Minor surgery BMI > 25 kg/m2 Swollen legs Varicose veins or History of unexplained or recurrent spontaneous Oral contraceptives or hormone replacement Sepsis (< 1 month) Serious lung disease, including pneumonia (< 1 month) Abnormal pulmonary function Acute myocardial infarction Congestive heart failure (< 1 month) History of inflammatory bowel disease Medical patient at bed rest Age 61-74 Arthroscopic surgery Major open surgery (> 45 min) Laparoscopic surgery (> 45 min) Malignancy Confined to bed (> 72 hours) Immobilizing plaster cast Central venous access Age >= 75 History of VTE Family history of VTE Factor V Leiden Prothrombin [id number] Lupus anticoagulant Anticardiolipin antibodies Elevated serum homocysteine Heparin-induced thrombocytopenia Other congenital or acquired thrombophilia Stroke (< 1 month) Elective arthroplasty Hip, pelvis, or leg fracture Acute spinal cord injury (< 1 month) Prophylaxis Regimen Total Risk Factor Score Risk Level Prophylaxis Regimen 0-1 Low Early ambulation 2 Moderate Order ONE of the following: *Sequential Compression Device (SCD) *Heparin 5000 units SQ BID 3-4 Higher Order ONE of the following medications: *Heparin 5000 units SQ TID *Enoxaparin/Lovenox 40 mg SQ daily (WT < 150 kg, CrCl > 30 mL/min) *Enoxaparin/Lovenox 30 mg SQ daily (WT < 150 kg, CrCl > 10-29 mL/min) *Enoxaparin/Lovenox 30 mg SQ BID (WT < 150 kg, CrCl > 30 mL/min) AND/OR *Sequential Compression Device (SCD) 5 or more Highest Order ONE of the following medications: *Heparin 5000 units SQ TID (Preferred with Epidurals) *Enoxaparin/Lovenox 40 mg SQ daily (WT < 150 kg, CrCl > 30 mL/min) *Enoxaparin/Lovenox 30 mg SQ daily (WT < 150 kg, CrCl > 10-29 mL/min) *Enoxaparin/Lovenox 30 mg SQ BID (WT < 150 kg, CrCl > 30 mL/min) AND *Sequential Compression Device (SCD) Assessment and Plan Assessment and Plan * Dyspnea: Patient has had serial cardiac enzymes and EKGs for ruling out purposes. She was seen by Dr. Dougie Chance of cardiology in the chest and center. Patient will have a Lexiscan in attempt to rule out cardiac etiology. If normal, patient discharged home with instructions to follow-up with PCP. * Hypertension: Continue current medication. * Obesity: Patient has been counseled on importance of diet, exercise, and weight loss. * Neck pain: Patient should follow-up with her physician. Patient is stable at this time. She is agreeable to this plan. Damien Cadena May 27, 2017 09:44
[2017-05-27] MEDS ORDERED: ACETAMINOPHEN/HYDROcodone 325 MG/7.5 MG TAB PO PRN (09:45)
--- NOTE | 2017-05-27 10:38 | RADRPT ---
EXAM DATE/TIME: 05/27/2017 08:57 [facility] COMPARISON: No previous studies available for comparison. INDICATIONS : Neck pain with dyspnea and right leg swelling. Angina. DOSE: 35 mCi Tc99m Myoview at stress. 11 mCi Tc99m Myoview at rest. 0.4 mg Lexiscan STRESS SYMPTOMS: Shortness of breath, chest pressure. EJECTION FRACTION: 64% MEDICAL HISTORY : Chronic obstructive pulmonary disease. Hypertension. Pulmonary embolism. SURGICAL HISTORY : Hysterectomy. ENCOUNTER: Initial ACUITY: 1 week PAIN SCALE: 7/10 LOCATION: neck. TECHNIQUE: The patient underwent pharmacologic stress with infusion of prescribed dose. Continuous ECG tracing was monitored during stress. Gated SPECT imaging was performed after stress and conventional SPECT i maging was performed at rest. The examination was performed on a SPECT/CT scanner, both attenuation and non-corrected datasets were reviewed. FINDINGS: DISTRIBUTION: The maximum perfused segment at stress is in the inferior wall. PERFUSION STUDY: The pattern of perfusion at stress is within normal limits. GATED STUDY: There is intact wall motion and thickening without hypokinetic or dyskinetic segments. CONCLUSION: 1. Unremarkable myocardial perfusion scan. RISK CATEGORY: Low (<1% Annual Mortality Rate) Dougie Leo MD on May 27, 2017 at 10:35 Board Certified Radiologist. This report was verified electronically.
--- NOTE | 2017-05-27 11:23 | HHI.DCPOC ---
Discharge Care Plan Diagnosis: (1) Dyspnea (2) HTN (hypertension) (3) Neck pain (4) Obesity Goals to Promote Your Health * To prevent worsening of your condition and complications * To maintain your health at the optimal level Directions to Meet Your Goals Take your medications as prescribed Follow your dietary instruction Follow activity as directed Keep your appointments as scheduled Take your immunizations and boosters as scheduled If your symptoms worsen call your PCP, if no PCP go to Urgent Care Center or Emergency Room Smoking is Dangerous to Your Health. Avoid second hand smoke Call the 24-hour hour crisis hotline for domestic abuse at Damien Cadena May 27, 2017 11:23
--- NOTE | 2017-05-27 12:59 | EKG ---
Date Performed: 05/27/2017 Time Performed: 03:02:58 PTAGE: 56 years EKG: Sinus rhythm WITH OCCASIONAL SUPRAVENTRICULAR PREMATURE COMPLEXES LOW QRS VOLTAGE IN PRECORDIAL LEADS BORDERLINE ECG PREVIOUS TRACING : 05/26/2017 23.12 Since previous tracing, no significant change noted DOCTOR: Dougie Chance Interpretating Date/Time 05/27/2017 12:57:47
--- NOTE | 2017-05-27 13:00 | EKG ---
Date Performed: 05/26/2017 Time Performed: 23:12:23 PTAGE: 56 years EKG: Sinus rhythm WITH SINUS ARRHYTHMIA LOW QRS VOLTAGE IN PRECORDIAL LEADS BORDERLINE ECG PREVIOUS TRACING : 01/08/2017 12.06 Since previous tracing, no significant change noted DOCTOR: Dougie Chance Interpretating Date/Time 05/27/2017 12:58:53
--- NOTE | 2017-05-27 13:00 | EKG ---
Date Performed: 05/27/2017 Time Performed: 04:39:43 PTAGE: 56 years EKG: Sinus rhythm LOW QRS VOLTAGE IN PRECORDIAL LEADS PATTERN CONSISTENT WITH PULMONARY DISEASE ABNORMAL ECG PREVIOUS TRACING : 05/27/2017 03.02 Since previous tracing, no significant change noted DOCTOR: Dougie Chance Interpretating Date/Time 05/27/2017 12:59:39
--- NOTE | 2017-05-27 13:01 | TR ---
Date Performed: 05/27/2017 Time Performed: 09:19:40 DOCTOR: Dougie Chance DRUG LIST: CLINICAL HISTORY: REASON FOR TEST: Angina REASON FOR ENDING: OBSERVATION: CONCLUSION: Lexiscan stress test was performed under standard four minute protocol. Radion[place] e was injected one minute prior to ending the test. No electrocardiographic abormalities were present to suggest ischemia. Nuclear imaging and interpretation are pending. COMMENTS:
== END 2017-05-27 13:33 | disposition home or self-care (01) ==
LOC: NEPE 21:40 → NEDA 05-27 00:24 → NEPHCDU 05-27 01:46
PROVIDERS: ADMIT Internal Medicine Interventional Cardiology; ATTEND Internal Medicine Interventional Cardiology
DX: R06.00 Dyspnea, unspecified (principal); I10 Essential (primary) hypertension; M54.2 Cervicalgia; M79.89 Other specified soft tissue disorders; J44.9 Chronic obstructive pulmonary disease, unspecified; M47.892 Other spondylosis, cervical region; M48.02 Spinal stenosis, cervical region; I49.8 Other specified cardiac arrhythmias; R94.31 Abnormal electrocardiogram [ECG] [EKG]; G47.30 Sleep apnea, unspecified; R09.82 Postnasal drip; R11.0 Nausea; R19.7 Diarrhea, unspecified; R20.0 Anesthesia of skin; M79.604 Pain in right leg; M54.9 Dorsalgia, unspecified; G89.29 Other chronic pain; E66.9 Obesity, unspecified; Z68.43 Body mass index [BMI] 50.0-59.9, adult; Z79.01 Long term (current) use of anticoagulants; Z86.73 Personal history of transient ischemic attack (TIA), and cerebral infarction without residual deficits; Z86.711 Personal history of pulmonary embolism; Z87.891 Personal history of nicotine dependence; Z79.899 Other long term (current) drug therapy
CPT/HCPCS: 71010; 71275; 72125; 78452; 80053; 81001; 82550; 83735; 83880; 84484; 85025; 85610; 85730; 93005; 93017; 93971; 96374; 96376; 99285; A9502; G0378; J2405; J2785; Q9967

== ENCOUNTER 2017-08-09 19:35 | Emergency (ER) | payer MEDICARE, OTHER ==
[~2017-08-09] VITALS: Ht 175.3 cm; Wt 160.0 kg
[2017-08-09 19:42] VITALS: BP 144/85; PULSE 88; RESP 18; TEMP 98; O2SAT 97
--- NOTE | 2017-08-09 20:06 | PD ---
HPI Chief Complaint: Respiratory Symptoms Time Seen by Provider: 19:47 Travel History International Travel<30 days: No Contact w/Intl Traveler<30days: No Traveled to known affect area: No History of Present Illness HPI The patient is a 56 year old female who presents to the [facility] emergency department with a history of cough, congestion, chest pain, shortness of breath that she reports began between 7 and 10 days ago. The patient reports that her cough is productive of yellow to green sputum. She reports that she's had an elevated temperature with a Tmax of 99. She reports that at times her sputum is blood tinged. She reports having nausea without vomiting or diarrhea. She reports that the chest pain is across bilateral sides of the chest and is associated with coughing. The patient reports that she does have a history of difficulty with breathing that was related to her prior smoking history, however she denies being on any inhalers currently. The patient additionally reports that she has a history of pulmonary embolism. She is on Pradaxa currently. She reports being compliant with her medication regimen. The patient is followed through the [facility] for primary care. On review of systems otherwise, the patient denies having any neck pain, abdominal pain, vomiting, diarrhea, urinary symptoms, or neurologic symptoms. [facility] [place] Past Medical History Narrative Medical The patient has a past medical history of stress fractures involving the right foot for which she uses crutches. She reports that this was diagnosed approximately a year ago. The patient has a history of hypertension, insomnia, depression, chronic back pain with a history of bilateral sciatica, history of tobacco abuse which she quit in 2012, chronic peripheral edema, history of a DVT in the right lower extremity, history of constipation, hyperlipidemia, obesity, osteoporosis endometriosis status post hysterectomy. Hx Anticoagulant Therapy: Yes (pradaxa) Asthma: Yes Autoimmune Disease: No Cardiovascular Problems: Yes COPD: Yes Cerebrovascular Accident: Yes Diabetes: No Diminished Hearing: No Endocrine: No Hypertension: Yes Immune Disorder: No Implanted Vascular Access Dvce: Yes Psychiatric: No Reproductive: No Respiratory: Yes (HX OF PE) Immunizations Current: Yes Tetanus Vaccination: Unknown Influenza Vaccination: No ?: Not Past Surgical History Narrative Surgical The patient's past surgical history is significant for knee surgery, right shoulder surgery, neck surgery, left shoulder surgery, hysterectomy Hysterectomy: Yes Joint Replacement: Yes Thoracic Surgery: Yes (CERVICAL PLATE) Other Surgery: Yes (PNEUMOTHORAX RT LUNG X 2.) Social History Alcohol Use: No Tobacco Use: No (quit 4 years ago.) Substance Use: No Allergies-Medications (Allergen,Severity, Reaction): Coded Allergies: No Known Allergies (Verified Allergy, Unknown, 08/09/17) Reported Meds & Prescriptions Reported Meds & Active Scripts Active Phenergan Supp (Promethazine HCl) 25 Mg Supp 25 Mg RECTAL Q8HR PRN Proair Respiclick Inh (Albuterol Sulfate) 90 Mcg/Act Aerp 2 Puff INH Q4-6H PRN Medrol Dosepak (Methylprednisolone) 4 Mg Dspk 4 Mg PO DIRECTED Per Pharmacist direction Levaquin (Levofloxacin) 750 Mg Tablet 750 Mg PO DAILY Zolpidem (Zolpidem Tartrate) 10 Mg Tab 10 Mg PO HS PRN Pradaxa (Dabigatran) 150 Mg Cap 150 Mg PO BID Claritin-D 12 HR (Loratadine-Pseudoephedrine 12 HR) 5-120 Mg Tab 1 Tab PO BID Gabapentin 600 Mg Tab 600 Mg PO HS Take 3 pills at night before bed. [Short Walking Boot] 1 Unit .XX DIRECTED Norvasc (Amlodipine Besylate) 5 Mg Tab 5 Mg PO DAILY Review of Systems Except as stated in HPI: all other systems reviewed are Neg General / Constitutional: Positive: Fever Eyes: No: Visual changes HENT: Positive: Rhinorrhea, Congestion, No: Headaches Cardiovascular: Positive: Chest Pain or Discomfort, Dyspnea on exertion, Edema Respiratory: Positive: Cough, Shortness of Breath, Wheezing Gastrointestinal: Positive: Nausea, No: Vomiting, Diarrhea, Abdominal Pain Genitourinary: No: Dysuria Musculoskeletal: No: Pain Skin: No Rash Neurologic: Positive: Weakness (generalized weakness), No: Focal Abnormalities , Change in Mentation, Slurred Speech, Sensory Disturbance Psychiatric: No: Depression Endocrine: No: Polydipsia Hematologic/Lymphatic: No: Easy Bruising Physical Exam Narrative General: The patient is a well-developed well-nourished female in no acute distress. Head and Neck exam: Head is normocephalic atraumatic. Eyes: EOMI, pupils are equal round and reactive to light. Nose: Midline septum with pink mucous membranes Mouth: Dentition unremarkable. Moist mucus membranes. Posterior oropharynx is not erythematous. No tonsillar hypertrophy. Uvula midline. Airway patent. Neck: No palpable lymphadenopathy. No nuchal rigidity. No thyromegaly. Cardiovascular: Regular rate and rhythm without murmurs, gallops, or rubs. Lungs: The patient has a frequent sounding productive cough on examination. The patient has soft expiratory wheezes audible posteriorly and worse in the right compared to the left. The patient has no crackles or rhonchi audible. No accessory muscle use noted. No tripoding. No paroxysmal abdominal breathing. Abdomen: Soft, without tenderness to palpation in all 4 quadrants of the abdomen. No guarding, rebound, or rigidity. Normal bowel sounds are audible. No tenderness on palpation of McBurney's point. Extremities: No clubbing or cyanosis. The patient has trace to 1+ edema bilateral lower extremities. The patient reports that her edema in her lower extremities is slightly worse than usual. 2+ pulses in all 4 extremities. Back: No spinous process tenderness to palpation. No costovertebral angle tenderness to palpation. Neurologic Exam: Grossly nonfocal. Skin Exam: No rash noted. Intact skin that is warm and dry. Data Data Last Documented VS Vital Signs Date Time Temp Pulse Resp B/P (MAP) Pulse Ox O2 Delivery O2 Flow Rate FiO2 08/09/17 20:38 18 98 Room Air 08/09/17 19:49 86 08/09/17 19:42 98.0 Orders Orders Electrocardiogram (08/09/17 19:56) Complete Blood Count With Diff (08/09/17 19:56) Basic Metabolic Panel (Bmp) (08/09/17 19:56) Creatine Kinase (Cpk) (08/09/17 19:56) Ckmb (Isoenzyme) Profile (08/09/17 19:56) Troponin I (08/09/17 19:56) B-Type Natriuretic Peptide (08/09/17 19:56) Prothrombin Time / Inr (Pt) (08/09/17 19:56) Act Partial Throm Time (Ptt) (08/09/17 19:56) Blood Culture (08/09/17 19:56) C-Reactive Protein (Crp) (08/09/17 19:56) Influenzae A/B Antigen (08/09/17 19:56) Chest, Single Ap (08/09/17 19:56) Iv Access Insert/Monitor (08/09/17 19:56) Ecg Monitoring (08/09/17 19:56) Oximetry (08/09/17 19:56) Methylprednisolone So Succ Inj (Solumedr (08/09/17 20:15) Albuterol-Ipratropium Neb (Duoneb Neb) (08/09/17 20:15) Ondansetron Inj (Zofran Inj) (08/09/17 20:30) Sodium Chlorid 0.9% 500 Ml Inj (Ns 500 M (08/09/17 20:30) Levofloxacin 750 Mg Premix Inj (Levaquin (08/09/17 21:45) Labs Laboratory Tests Test 08/09/17 20:15 White Blood Count 13.8 TH/MM3 Red Blood Count 4.64 MIL/MM3 Hemoglobin 13.5 GM/DL Hematocrit 40.2 % Mean Corpuscular Volume 86.7 FL Mean Corpuscular Hemoglobin 29.0 PG Mean Corpuscular Hemoglobin Concent 33.4 % Red Cell Distribution Width 14.3 % Platelet Count 327 TH/MM3 Mean Platelet Volume 8.5 FL Neutrophils (%) (Auto) 66.5 % Lymphocytes (%) (Auto) 19.9 % Monocytes (%) (Auto) 8.9 % Eosinophils (%) (Auto) 3.9 % Basophils (%) (Auto) 0.8 % Neutrophils # (Auto) 9.2 TH/MM3 Lymphocytes # (Auto) 2.7 TH/MM3 Monocytes # (Auto) 1.2 TH/MM3 Eosinophils # (Auto) 0.5 TH/MM3 Basophils # (Auto) 0.1 TH/MM3 CBC Comment DIFF FINAL Differential Comment Prothrombin Time 10.1 SEC Prothromb Time International Ratio 1.0 RATIO Activated Partial Thromboplast Time 36.4 SEC Blood Urea Nitrogen 8 MG/DL Creatinine 0.95 MG/DL Random Glucose 100 MG/DL Calcium Level 8.8 MG/DL Sodium Level 141 MEQ/L Potassium Level 4.0 MEQ/L Chloride Level 105 MEQ/L Carbon Dioxide Level 31.5 MEQ/L Anion Gap 5 MEQ/L Estimat Glomerular Filtration Rate 61 ML/MIN Total Creatine Kinase 96 U/L Troponin I LESS THAN 0.02 NG/ML C-Reactive Protein 6.70 MG/DL B-Type Natriuretic Peptide LESS THAN 2 PG/ML MDM Medical Decision Making Medical Screen Exam Complete: Yes Emergency Medical Condition: Yes Medical Record Reviewed: Yes Interpretation(s) Last Impressions Chest X-Ray 08/09/171955 Signed Impressions: Service Date/Time: Wednesday, August 09, 2017 20:18 - CONCLUSION: No acute cardiopulmonary disease. Erica Ramírez MD Differential Diagnosis Pneumonia, versus influenza, versus COPD exacerbation, versus pulmonary embolism , versus new-onset congestive heart failure, versus acute coronary syndrome Narrative Course During the course of the patients emergency department visit, the patients history, examination, and differential diagnosis were reviewed with the patient. The patient was placed on a cardiac surgeon with oximetry and frequent blood pressure monitoring. The patient had IV access obtained and blood work sent for analysis. The patient had an EKG done on arrival that shows a sinus rhythm with a sinus arrhythmia, heart rate of 81, QRS duration is 70 ms, QTc is [address] segment elevation, T waves are inverted in V1, V2. The patient was initially provided a DuoNeb 2, Solu-Medrol 125 mg IV. The patient developed worsening nausea and then had 1 episode of vomiting. The patient was given Zofran 4 mg IV. The patients laboratory studies were reviewed and remarkable for an influenza test that is negative. A white count 13.8, hemoglobin 13.5, platelets 327 with 8.9 monocytes, basic metabolic profile is remarkable for a GFR 61, CPK 96, troponin I less than 0.02, C-reactive protein 6.7, BNP is less than 2, PT 10.1, PTT 36.4. Radiology studies were reviewed and remarkable for a chest x-ray that shows no acute cardiopulmonary disease. The patient will be given a dose of Levaquin 750 IV 1. The patient's symptoms are most consistent with bronchitis with a component of reactive airway. The patient does have a prior history of smoking. The patient will be given a prescription for a rescue inhaler, Medrol Dosepak taper, and antibiotic. The patient is instructed to follow-up with her primary care physician for reexamination next 2 days. The patient is resting comfortably and feels better, is alert and in no distress. The patients results and examination findings were discussed with the patient. The repeat examination is unremarkable and benign. The history, exam, diagnostic testing, and current condition do not suggest any significant pathology to warrant further testing, continued ED treatment, admission, or surgical evaluation at this point. The vital signs have been stable. The patient does not have uncontrollable pain, intractable vomiting, or other significant symptoms. The patient's condition is stable and appropriate for discharge. The patient will pursue further outpatient evaluation with a primary care physician or other designated or consulting physician as indicated in the discharge instructions. The patient expressed understanding and was agreeable with this plan. Sepsis Criteria SIRS Criteria (2 or more): WBC > 83141, < 4000 or > 10% bands Diagnosis Primary Impression: Bronchitis Additional Impression: Reactive airway disease Qualified Codes: J45.21 - Mild intermittent asthma with (acute) exacerbation Referrals: Primary Care Physician 2 days Patient Instructions: Acute Bronchitis (ED), General Instructions, Reactive Airways Disease (ED) Med/Other Pt SpecificInfo: Prescription(s) given Scripts Promethazine Supp (Phenergan Supp) 25 Mg Supp 25 MG RECTAL Q8HR Y for NAUSEA OR VOMITING, #3 SUPP 0 Refills Prov: Azalia Celeste MD 08/09/17 Albuterol Powder Inh (Proair Respiclick Inh) 90 Mcg/Act Aerp 2 PUFF INH Q4-6H Y for SHORTNESS OF BREATH, #1 INHALER 0 Refills Prov: Azalia Celeste MD 08/09/17 Methylprednisolone Dosepak (Medrol Dosepak) 4 Mg Dspk 4 MG PO DIRECTED, #1 DSPK 0 Refills Per Pharmacist direction Prov: Azalia Celeste MD 08/09/17 Levofloxacin (Levaquin) 750 Mg Tablet 750 MG PO DAILY for Infection, #6 TAB 0 Refills Prov: Azalia Celeste MD 08/09/17 Disposition: 01 DISCHARGE HOME Condition: Stable Azalia Celeste MD Aug 09, 2017 20:06
[2017-08-09] MEDS ORDERED: methylPREDNISolone SOD SUCC 125 MG/2 ML VIAL IV PUSH ONE (20:15)
[2017-08-09] MEDS: RESP: ALBUTEROL 2.5 MG/IPRATROPIUM 0.5 MG NEB (SCH) INH (20:21)
[2017-08-09] MEDS ORDERED: ONDANSETRON HCL 4 MG/2 ML VIAL IV ONE (20:30)
[2017-08-09] MEDS ORDERED: SODIUM CHLORID 0.9% 500 ML INJ 500 ML IV ONE (20:30)
[2017-08-09 20:38] VITALS: RESP 18; O2SAT 98
[2017-08-09 20:38] LABS: PROTHROMBIN TIME - PATIENT 10.1 SEC (9.8-11.6)
[2017-08-09 20:49] LABS: BICARBONATE 31.5 MEQ/L (21.0-32.0); BLOOD UREA NITROGEN 8 MG/DL (7-18); CALCIUM 8.8 MG/DL (8.5-10.1); CHLORIDE 105 MEQ/L (98-107); CREATININE 0.95 MG/DL (0.50-1.00); GLOMERULAR FILTRATION RATE 61 ML/MIN (>89); GLUCOSE,RANDOM 100 MG/DL (74-106); SODIUM (NA) 141 MEQ/L (136-145)
[2017-08-09 20:54] LABS: TROPONIN I LESS THAN 0.02 NG/ML (0.02-0.05)
[2017-08-09 21:01] LABS: AUTOMATED NEUTROPHIL # 9.2 TH/MM3 (1.8-7.7); BASOPHIL # 0.1 TH/MM3 (0-0.2); BASOPHIL % 0.8 % (0.0-2.0); EOSINOPHIL # 0.5 TH/MM3 (0-0.4); EOSINOPHIL % 3.9 % (0.0-4.0); HEMATOCRIT 40.2 % (35.0-46.0); HEMOGLOBIN 13.5 GM/DL (11.6-15.3); LYMPH % 19.9 % (9.0-44.0); LYMPHOCYTE # 2.7 TH/MM3 (1.0-4.8); MEAN CELL VOLUME 86.7 FL (80.0-100.0); MEAN CORPUSCULAR HGB CONC 33.4 % (32.0-36.0); MEAN PLATELET VOLUME 8.5 FL (7.0-11.0); MONO % 8.9 % (0.0-8.0); MONOCYTE # 1.2 TH/MM3 (0-0.9); NEUT % 66.5 % (16.0-70.0); PLATELET COUNT 327 TH/MM3 (150-450); RED BLOOD COUNT 4.64 MIL/MM3 (4.00-5.30); RED CELL DISTRIBUTION WIDTH 14.3 % (11.6-17.2); WHITE BLOOD COUNT 13.8 TH/MM3 (4.0-11.0)
--- NOTE | 2017-08-09 21:02 | RADRPT ---
EXAM DATE/TIME: 08/09/2017 20:18 [facility] COMPARISON: CHEST SINGLE AP, May 26, 2017, 22:24. INDICATIONS : Flu like symptoms for one week. MEDICAL HISTORY : Chronic obstructive pulmonary disease. Hypertension SURGICAL HISTORY : Hysterectomy. ENCOUNTER: Initial ACUITY: 1 week PAIN SCORE: 0/10 LOCATION: Bilateral chest FINDINGS: The lungs are clear without infiltrate, nodule, or mass. There is no appreciable pleural effusion fo r technique. Heart and mediastinum are unremarkable. CONCLUSION: No acute cardiopulmonary disease. Erica Ramírez MD on August 09, 2017 at 21:00 Board Certified Radiologist. This report was verified electronically.
[2017-08-09] MEDS ORDERED: MEDR4PAK PO (21:43)
[2017-08-09] MEDS ORDERED: LEVA750T9 PO (21:43)
[2017-08-09] MEDS ORDERED: ALBU1AER5 INH (21:43)
[2017-08-09] MEDS ORDERED: PROM1SUP7 RECTAL (21:44)
[2017-08-09] MEDS ORDERED: LEVOFLOXACIN 750 MG PREMIX INJ 150 ML IV ONE (21:45)
--- NOTE | 2017-08-10 22:09 | EKG ---
Date Performed: 08/09/2017 Time Performed: 20:42:14 PTAGE: 56 years EKG: Sinus rhythm WITH MARKED SINUS ARRHYTHMIA LOW QRS VOLTAGE IN PRECORDIAL LEADS BORDERLINE ECG PREVIOUS TRACING : 05/27/2017 04.39 DOCTOR: Juan Munguia Interpretating Date/Time 08/10/2017 22:02:30
== END 2017-08-10 00:12 | disposition home or self-care (01) ==
LOC: NEPC 19:35
DX: J40 Bronchitis, not specified as acute or chronic (principal); J45.909 Unspecified asthma, uncomplicated; R11.2 Nausea with vomiting, unspecified; I10 Essential (primary) hypertension; J44.9 Chronic obstructive pulmonary disease, unspecified; M81.0 Age-related osteoporosis without current pathological fracture; I49.9 Cardiac arrhythmia, unspecified; Z86.73 Personal history of transient ischemic attack (TIA), and cerebral infarction without residual deficits; Z86.711 Personal history of pulmonary embolism
CPT/HCPCS: 71045; 80048; 82550; 83880; 84484; 85025; 85610; 85730; 86140; 87040; 87804; 93005; 94640; 94664; 96374; 96375; 99284; J1956; J2405; J2930; J7040

== ENCOUNTER → 2017-08-21 | Outpatient (CLI) | payer MEDICARE, OTHER ==
[~2017-08-21] MED LIST changes: +ALBU1AER5 INH; +LEVA750T9 PO; +MEDR4PAK PO; +PROM1SUP7 RECTAL
[2017-08-21 14:45] LABS: ALBUMIN 3.3 GM/DL (3.4-5.0); AST (GOT) 16 U/L (15-37); BICARBONATE 28.8 MEQ/L (21.0-32.0); BLOOD UREA NITROGEN 10 MG/DL (7-18); CALCIUM 8.7 MG/DL (8.5-10.1); CHLORIDE 103 MEQ/L (98-107); CHOLESTEROL 195 MG/DL (120-200); CREATININE 0.94 MG/DL (0.50-1.00); GLOMERULAR FILTRATION RATE 62 ML/MIN (>89); GLUCOSE,FASTING 96 MG/DL (74-99); SODIUM (NA) 138 MEQ/L (136-145)
[2017-08-21 14:46] LABS: ALT (GPT) 23 U/L (10-53); TRIGLYCERIDES 143 MG/DL (42-150)
[2017-08-21 14:48] LABS: AUTOMATED NEUTROPHIL # 9.2 TH/MM3 (1.8-7.7); BASOPHIL # 0.1 TH/MM3 (0-0.2); BASOPHIL % 0.6 % (0.0-2.0); EOSINOPHIL # 0.3 TH/MM3 (0-0.4); EOSINOPHIL % 2.3 % (0.0-4.0); HEMATOCRIT 43.7 % (35.0-46.0); HEMOGLOBIN 14.7 GM/DL (11.6-15.3); LYMPH % 20.5 % (9.0-44.0); LYMPHOCYTE # 2.7 TH/MM3 (1.0-4.8); MEAN CELL VOLUME 87.3 FL (80.0-100.0); MEAN CORPUSCULAR HEMOGLOBIN 29.4 PG (27.0-34.0); MEAN CORPUSCULAR HGB CONC 33.7 % (32.0-36.0); MEAN PLATELET VOLUME 8.4 FL (7.0-11.0); MONO % 7.4 % (0.0-8.0); NEUT % 69.2 % (16.0-70.0); PLATELET COUNT 325 TH/MM3 (150-450); RED BLOOD COUNT 5.01 MIL/MM3 (4.00-5.30); RED CELL DISTRIBUTION WIDTH 14.4 % (11.6-17.2); WHITE BLOOD COUNT 13.3 TH/MM3 (4.0-11.0)
[2017-08-21 15:11] LABS: ALKALINE PHOSPHATASE 91 U/L (45-117); CHOLESTEROL/ HDL RATIO 3.26 RATIO; FREE T3 3.18 PG/ML (2.18-3.98); HDL CHOLESTEROL 59.8 MG/DL (40.0-60.0); LDL CHOLESTEROL 107 MG/DL (0-99); TOTAL BILIRUBIN ADULT 0.8 MG/DL (0.2-1.0); TOTAL PROTEIN 7.6 GM/DL (6.4-8.2)
[2017-08-21 15:26] LABS: BILIRUBIN, URINE NEG (NEG); BLOOD, URINE TRACE (NEG); GLUCOSE,URINE NEG (NEG); KETONE, URINE NEG (NEG); MUCUS URINE FEW /lpf (OCC); NITRITE,URINE NEG (NEG); PH, URINE 6.5 (5.0-8.5); SQUAMOUS EPITHELIAL CELL URINE 4 /hpf (0-5); URINE COLOR YELLOW (YELLW/STRAW); URINE LEUKOCYTE ESTERASE NEG (NEG)
== END ==
LOC: CLAB 13:11
PROVIDERS: ATTEND Surgery
DX: R41.3 Other amnesia (principal); R82.90 Unspecified abnormal findings in urine; E66.01 Morbid (severe) obesity due to excess calories; Z13.29 Encounter for screening for other suspected endocrine disorder
CPT/HCPCS: 36415; 80053; 80061; 81001; 82607; 82746; 84439; 84443; 84481; 84590; 85025; 87086

== ENCOUNTER 2017-09-24 19:55 | Emergency (ER) | payer MEDICARE, OTHER ==
[~2017-09-24] VITALS: Ht 172.7 cm; Wt 155.0 kg
[2017-09-24] MEDS ORDERED: IOHEXOL 350 MG/ML 10 ML VIAL (for RAD DIAG) IVCONTRAST ONE (19:56)
[2017-09-24 20:14] VITALS: BP 123/71; PULSE 87; RESP 24; TEMP 97.1; O2SAT 99
[2017-09-24 21:00] VITALS: BP 132/67; PULSE 84; RESP 22; O2SAT 98
[2017-09-24] MEDS ORDERED: PANTOPRAZOLE SODIUM 40 MG VIAL IV PUSH ONE (21:00)
[2017-09-24] MEDS ORDERED: LORazepam 2 MG/ML VIAL IV PUSH ONE (21:00)
--- NOTE | 2017-09-24 21:14 | PD ---
HPI Chief Complaint: Respiratory Symptoms Time Seen by Provider: 20:23 Travel History International Travel<30 days: No Contact w/Intl Traveler<30days: No Traveled to known affect area: No History of Present Illness HPI Patient is a 57-year-old female who suddenly 2 hours ago felt something stuck in her throat. She denies drooling she denies inability to handle secretions she denies voice change. Patient does have a history of PE in the past and she is on Xarelto. She denies shortness of breath she just feels somewhat anxious over the fact that something feels stuck in her chest. Her heart rate is 80 on the monitor she denies a sensation of shortness of breath patient ate a hamburger 3 hours before the feeling but there was no choking during the eating episode. In the ER she seems what somewhat anxious she is morbidly obese she has a anterior surgical scar for an anterior approach to a discectomy and anterior approach for a cage fusion of her C3-4-5. That was from a trauma 2011 in the ER her main complaint is something stuck in her throat above the sternal notch. Patient denies history of thyroid issues. nondiabetic she is on hypertensive meds PFSH Past Medical History Hx Anticoagulant Therapy: Yes (pradaxa) Asthma: Yes Autoimmune Disease: No Cardiovascular Problems: Yes COPD: Yes Cerebrovascular Accident: Yes Diabetes: No Diminished Hearing: No Endocrine: No Hypertension: Yes Immune Disorder: No Implanted Vascular Access Dvce: Yes Psychiatric: No Reproductive: No Respiratory: Yes (HX OF PE) Immunizations Current: Yes Past Surgical History Hysterectomy: Yes Joint Replacement: Yes Thoracic Surgery: Yes (CERVICAL PLATE) Other Surgery: Yes (PNEUMOTHORAX RT LUNG X 2.) Social History Alcohol Use: No Tobacco Use: No (quit 4 years ago.) Substance Use: No Allergies-Medications (Allergen,Severity, Reaction): Coded Allergies: No Known Allergies (Verified Allergy, Unknown, 09/24/17) Reported Meds & Prescriptions Reported Meds & Active Scripts Active Magic Mouthwash Pediatric/Adult Liq (Lidocaine/Diphenhydr/Alum/Mg/Simeth) 60 Ml Susp 5 Ml SWISH-SWAL ACHS Each 5mL contains: Diphenydramine 4.5mg, Viscous Lidocaine 2% 10mg, Maalox Advanced Regular Strength 2.7ml Phenergan Supp (Promethazine HCl) 25 Mg Supp 25 Mg RECTAL Q8HR PRN Proair Respiclick Inh (Albuterol Sulfate) 90 Mcg/Act Aerp 2 Puff INH Q4-6H PRN Zolpidem (Zolpidem Tartrate) 10 Mg Tab 10 Mg PO HS PRN Pradaxa (Dabigatran) 150 Mg Cap 150 Mg PO BID Claritin-D 12 HR (Loratadine-Pseudoephedrine 12 HR) 5-120 Mg Tab 1 Tab PO BID Gabapentin 600 Mg Tab 600 Mg PO HS Take 3 pills at night before bed. [Short Walking Boot] 1 Unit .XX DIRECTED Norvasc (Amlodipine Besylate) 5 Mg Tab 5 Mg PO DAILY Review of Systems Except as stated in HPI: all other systems reviewed are Neg Physical Exam Narrative GENERAL: Patient appears anxious SKIN: Warm and dry. HEAD: Atraumatic. Normocephalic. EYES: Pupils equal and round. No scleral icterus. No injection or drainage. ENT: No nasal bleeding or discharge. Mucous membranes pink and moist. NECK: Trachea midline. No JVD. No nodules felt in her thyroid area there is an anterior linear surgical scar above the sternal notch from a anterior discectomy and anterior approach for cervical fusion patient drinks apple juice in front of me there is no choking there is no inability to swallow CARDIOVASCULAR: Regular rate and rhythm. RESPIRATORY: No accessory muscle use. Clear to auscultation. Breath sounds equal bilaterally. Lungs are clear to auscultation GASTROINTESTINAL: Abdomen morbidly obese soft, non-tender, nondistended. Hepatic and splenic margins not palpable. MUSCULOSKELETAL: Extremities without clubbing, cyanosis, or edema. No obvious deformities. NEUROLOGICAL: Awake and alert. No obvious cranial nerve deficits. Motor grossly within normal limits. Five out of 5 muscle strength in the arms and legs. Normal speech. PSYCHIATRIC: Appropriate mood and affect; insight and judgment normal. Data Data Last Documented VS Vital Signs Date Time Temp Pulse Resp B/P (MAP) Pulse Ox O2 Delivery O2 Flow Rate FiO2 09/25/17 01:13 09/24/17 23:00 79 21 96 Room Air 09/24/17 20:14 97.1 Orders Orders Electrocardiogram (09/24/17 20:55) Complete Blood Count With Diff (09/24/17 20:55) Comprehensive Metabolic Panel (09/24/17 20:55) Ckmb (Isoenzyme) Profile (09/24/17 20:55) Troponin I (09/24/17 20:55) Lipase (09/24/17 20:55) Pantoprazole Inj (Protonix Inj) (09/24/17 21:00) Ct Pulmonary Angiogram (09/24/17 ) Ct Soft Tiss Neck W/O Iv Cont (09/24/17 ) Group A Rapid Strep Screen (09/24/17 20:56) Lorazepam Inj (Ativan Inj) (09/24/17 21:00) Iohexol 350 Inj (Omnipaque 350 Inj) (09/24/17 19:56) Strep Culture (Group A) (09/24/17 22:10) Al-Mag Hy-Si 40-40-4 Mg/Ml Liq (Mag-Al P (09/25/17 00:15) Lidocaine 2% Viscous (Xylocaine 2% Visco (09/25/17 00:15) Ed Discharge Order (09/25/17 00:50) Labs Laboratory Tests Test 09/24/17 21:20 White Blood Count 11.4 TH/MM3 Red Blood Count 4.72 MIL/MM3 Hemoglobin 14.0 GM/DL Hematocrit 40.8 % Mean Corpuscular Volume 86.4 FL Mean Corpuscular Hemoglobin 29.7 PG Mean Corpuscular Hemoglobin Concent 34.4 % Red Cell Distribution Width 14.4 % Platelet Count 295 TH/MM3 Mean Platelet Volume 8.6 FL Neutrophils (%) (Auto) 72.3 % Lymphocytes (%) (Auto) 17.8 % Monocytes (%) (Auto) 7.3 % Eosinophils (%) (Auto) 1.7 % Basophils (%) (Auto) 0.9 % Neutrophils # (Auto) 8.3 TH/MM3 Lymphocytes # (Auto) 2.0 TH/MM3 Monocytes # (Auto) 0.8 TH/MM3 Eosinophils # (Auto) 0.2 TH/MM3 Basophils # (Auto) 0.1 TH/MM3 CBC Comment DIFF FINAL Differential Comment Blood Urea Nitrogen 11 MG/DL Creatinine 0.97 MG/DL Random Glucose 117 MG/DL Total Protein 7.6 GM/DL Albumin 3.3 GM/DL Calcium Level 8.3 MG/DL Alkaline Phosphatase 87 U/L Aspartate Amino Transf (AST/SGOT) 19 U/L Alanine Aminotransferase (ALT/SGPT) 25 U/L Total Bilirubin 0.2 MG/DL Sodium Level 137 MEQ/L Potassium Level 3.9 MEQ/L Chloride Level 104 MEQ/L Carbon Dioxide Level 25.3 MEQ/L Anion Gap 8 MEQ/L Estimat Glomerular Filtration Rate 60 ML/MIN Total Creatine Kinase 66 U/L Troponin I LESS THAN 0.02 NG/ML Lipase 75 U/L MDM Medical Decision Making Medical Screen Exam Complete: Yes Emergency Medical Condition: Yes Differential Diagnosis Pharyngitis versus foreign body esophagus versus pulmonary embolism versus costochondritis versus WI versus pneumonia versus other Narrative Course CT of chest is negative for PE CT of neck is negative for foreign body strep throat culture rapid strep is negative patient is given Ativan and then after it helps her feel more relaxed studies show that there is no foreign body there is no pulmonary embolism. Give her viscous lidocaine Maalox to drink to calm her throat down and she is discharged with a prescription for Magic mouthwash to take sips of if she feels the pain returned in the next few days to follow with her doctor as an outpatient Diagnosis Primary Impression: Foreign body sensation in throat Scripts [id number]-Ukygumfmp-Bca-Alum-Simeth Liq (Magic Mouthwash Pediatric/Adult Liq) 60 Ml Susp 5 ML SWISH-SWAL ACHS for Mouth sores, #60 ML 0 Refills Each 5mL contains: Diphenydramine 4.5mg, Viscous Lidocaine 2% 10mg, Maalox Advanced Regular Strength 2.7ml Prov: Robert Don MD 09/25/17 Disposition: 01 DISCHARGE HOME Condition: Good Robert Don MD Sep 24, 2017 21:14
[2017-09-24 21:50] LABS: AUTOMATED NEUTROPHIL # 8.3 TH/MM3 (1.8-7.7); BASOPHIL # 0.1 TH/MM3 (0-0.2); BASOPHIL % 0.9 % (0.0-2.0); EOSINOPHIL # 0.2 TH/MM3 (0-0.4); EOSINOPHIL % 1.7 % (0.0-4.0); HEMATOCRIT 40.8 % (35.0-46.0); LYMPH % 17.8 % (9.0-44.0); MEAN CELL VOLUME 86.4 FL (80.0-100.0); MEAN CORPUSCULAR HEMOGLOBIN 29.7 PG (27.0-34.0); MEAN CORPUSCULAR HGB CONC 34.4 % (32.0-36.0); MEAN PLATELET VOLUME 8.6 FL (7.0-11.0); MONO % 7.3 % (0.0-8.0); MONOCYTE # 0.8 TH/MM3 (0-0.9); NEUT % 72.3 % (16.0-70.0); PLATELET COUNT 295 TH/MM3 (150-450); RED BLOOD COUNT 4.72 MIL/MM3 (4.00-5.30); RED CELL DISTRIBUTION WIDTH 14.4 % (11.6-17.2); WHITE BLOOD COUNT 11.4 TH/MM3 (4.0-11.0)
[2017-09-24 22:15] LABS: ALBUMIN 3.3 GM/DL (3.4-5.0); AST (GOT) 19 U/L (15-37); BICARBONATE 25.3 MEQ/L (21.0-32.0); BLOOD UREA NITROGEN 11 MG/DL (7-18); CALCIUM 8.3 MG/DL (8.5-10.1); CHLORIDE 104 MEQ/L (98-107); CREATININE 0.97 MG/DL (0.50-1.00); GLOMERULAR FILTRATION RATE 60 ML/MIN (>89); GLUCOSE,RANDOM 117 MG/DL (74-106); SODIUM (NA) 137 MEQ/L (136-145)
[2017-09-24 22:16] LABS: ALT (GPT) 25 U/L (10-53)
[2017-09-24 22:20] LABS: ALKALINE PHOSPHATASE 87 U/L (45-117); TOTAL BILIRUBIN ADULT 0.2 MG/DL (0.2-1.0); TOTAL PROTEIN 7.6 GM/DL (6.4-8.2); TROPONIN I LESS THAN 0.02 NG/ML (0.02-0.05)
--- NOTE | 2017-09-24 22:20 | RADRPT ---
EXAM DATE/TIME: 09/24/2017 22:05 [facility] COMPARISON: CT PULMONARY ANGIOGRAM, May 26, 2017, 23:25. INDICATIONS : History of pulmonary emboli, sudden onset of short of breath. IV CONTRAST: 75 cc Omnipaque 350 (iohexol) IV RADIATION DOSE: 23.19 CTDIvol (mGy) MEDICAL HISTORY : Cerebrovascular disease. Hypertension. Chronic obstructive pulmonary disease. SURGICAL HISTORY : Fusion, cervical. ENCOUNTER: Initial ACUITY: 1 day PAIN SCALE: 0/10 LOCATION: chest TECHNIQUE: Volumetric scanning of the chest was performed using a pulmonary embolism protocol MIP images were re constructed. Using automated exposure control and adjustment of the mA and/or kV according to patien t size, radiation dose was kept as low as reasonably achievable to obtain optimal diagnostic quality images. DICOM format image data is available electronically for review and comparison. Follow-up recommendations for detected pulmonary nodules are based at a minimum on nodule size and pa tient risk factors according to Fleischner Society Guidelines. FINDINGS: PULMONARY ARTERIES: No filling defects are seen in the pulmonary arteries through the segmental level. LUNGS: There is no consolidation or pneumothorax . No concerning pulmonary nodule is visualized. PLEURAE: There is no pleural thickening or pleural effusion. MEDIASTINUM: There is good visualization of the great vessels of the middle mediastinum. No evidence of mediastin al or hilar adenopathy/mass. MUSCULOSKELETAL: Within normal limits for patient age. MISCELLANEOUS: The visualized upper abdominal organs demonstrate no acute abnormality. CONCLUSION: 1. Negative for pulmonary embolism. No acute findings. Sarthak Baird MD on September 24, 2017 at 22:15 Board Certified Radiologist. This report was verified electronically.
--- NOTE | 2017-09-24 22:42 | RADRPT ---
EXAM DATE/TIME: 09/24/2017 21:58 [facility] COMPARISON: No previous studies available for comparison. INDICATIONS : Short of breath, evaluate for foreign body. RADIATION DOSE: 17.73 CTDIvol (mGy) MEDICAL HISTORY : Cerebrovascular disease. Hypertension. Chronic obstructive pulmonary disease. SURGICAL HISTORY : Fusion, cervical. ENCOUNTER: Initial ACUITY: 1 day PAIN SCORE: 0/10 LOCATION: neck TECHNIQUE: Volumetric scanning of the neck was performed. Using automated exposure control and adjustment of th e mA and/or kV according to patient size, radiation dose was kept as low as reasonably achievable to obtain optimal diagnostic quality images. DICOM format image data is available electronically for re view and comparison. FINDINGS: There is previous fusion of the cervical spine with plate and screw fixation. No airway obstructing lesions or foreign bodies are identified. No pathologically enlarged lymph node s are identified within the neck. Submandibular and parotid glands are symmetric. Visualized paranasa l sinuses are clear. Thyroid unremarkable. CONCLUSION: 1. No acute findings. Previous fusion of the cervical spine. No foreign body identified. Sarthak Baird MD on September 24, 2017 at 22:36 Board Certified Radiologist. This report was verified electronically.
[2017-09-24 23:00] VITALS: BP 132/67; PULSE 79; RESP 21; O2SAT 96
[2017-09-25] MEDS ORDERED: LIDOCAINE VISCOUS 2% SOLN 15 ML UDC SWISH-SWAL ONE (00:15)
[2017-09-25] MEDS ORDERED: ALUMINUM/MAGNESIUM/SIMETH 30 ML CUP PO ONE (00:15)
[2017-09-25] MEDS ORDERED: MAGICPED SWISH-SWAL (00:19)
--- NOTE | 2017-09-25 19:56 | EKG ---
Date Performed: 09/24/2017 Time Performed: 21:07:21 PTAGE: 57 years EKG: Sinus rhythm WITH OCCASIONAL SUPRAVENTRICULAR PREMATURE COMPLEXES LOW QRS VOLTAGE IN PRECORDIAL LEADS Since previ ous tracing, no significant change noted BORDERINE ECG PREVIOUS TRACING : 08/09/2017 20.42 DOCTOR: Tom Hsatings Interpretating Date/Time 09/25/2017 19:53:31
== END 2017-09-25 01:14 | disposition home or self-care (01) ==
LOC: NEPC 19:55
DX: R09.89 Other specified symptoms and signs involving the circulatory and respiratory systems (principal); I10 Essential (primary) hypertension; Z79.01 Long term (current) use of anticoagulants; Z86.711 Personal history of pulmonary embolism; Z87.891 Personal history of nicotine dependence
CPT/HCPCS: 70490; 71275; 80053; 82550; 83690; 84484; 85025; 87081; 87880; 93005; 96374; 99285; J2060; Q9967

== ENCOUNTER → 2017-10-09 | Outpatient (CLI) | payer MEDICARE, OTHER ==
[~2017-10-09] MED LIST changes: -LEVA750T9 PO; +MAGICPED SWISH-SWAL; -MEDR4PAK PO
--- NOTE | 2017-10-13 10:26 | RSPPFT ---
DATE OF PROCEDURE: 10/08/17 COMMENTS: Spirometry shows FVC of 2.7 at 79% of predicted, FEV1 of 1.6 at 58%, FEV1/FVC ratio is decreased. Flow is decreased at FEF 25, FEF 50, FEF 75 and FEF 25-75. There is a good response after bronchodilator treatment. Lung volumes show residual volume is normal. TLC is normal. Diffusion capacity is decreased. Flow volume loop indicates an obstructive pattern. Room air arterial blood gases show pH of 7.38, PCO2 of 46, PO2 of 93, BiCarb of 27 and O2 Saturation at 94%. IMPRESSION: 1. Moderately severe COPD. 2. Good response after bronchodilator treatment. 3. Normal lung volumes. 4. Decreased diffusion capacity. 5. Normal oxygenation on room air.
== END ==
LOC: HRSP 10:31
PROVIDERS: ATTEND Specialist
DX: R06.00 Dyspnea, unspecified (principal)
CPT/HCPCS: 36600; 82805; 94060; 94726; 94729

== ENCOUNTER 2018-01-27 05:27 | Inpatient (IN) ==
[2018-01-27] MEDS ORDERED: Chlorhexidine Gluconate 2% 1 Pack (2 Cloths) TOPICAL SCH (06:15)
[2018-01-27] MEDS ORDERED: Dexmedetomidine Inj 200 MCG/2 ML Vial ONE (06:19)
[2018-01-27] MEDS ORDERED: Propofol Inj 500 MG/50 ML Vial ONE (06:19)
[2018-01-27] MEDS ORDERED: Sugammadex Inj 200 MG/2 ML Vial IV.PUSH ONE (06:20)
[2018-01-27] MEDS ORDERED: Ketamine Inj 50 MG/5 ML Syringe IV.PUSH ONE (06:22)
[2018-01-27] MEDS ORDERED: Sodium Chlor 0.9% Inj 500 ML IV.SIG SCH (07:00)
[2018-01-27] MEDS ORDERED: ceFAZolin Inj 3,000 MG in Sodium Chlor 0.9% Inj 100 ML IV.SIG SCH (07:00)
[2018-01-27] MEDS: Metoprolol Tartrate 25 MG Tablet PO SCH ×2 (08:51→08:52)
[2018-01-27] MEDS ORDERED: fentaNYL Citrate Inj 100 MCG/2 ML Ampul ONE (09:13)
[2018-01-27] MEDS: Bupivacaine/Epinephrine 0.5% Inj 50 ML Vial ONE ×2 (09:40→13:39)
[2018-01-27] MEDS ORDERED: diphenhydrAMINE HCl 12.5 MG/5 ML Elixir UDC PO PRN (12:49)
[2018-01-27] MEDS ORDERED: Post-op Orders (for Pharmacy) OTHER STA (12:49)
[2018-01-27] MEDS ORDERED: Naloxone Inj 0.4 MG/ML Vial IV.PUSH PRN (12:54)
[2018-01-27] MEDS ORDERED: *morphine SULFATE 10 MG/ML PERIprocedure ONLY ONE (13:22)
[2018-01-27] MEDS: KCL 20 mEq/D5W/NaCl 0.45% Inj 1,000 ML IV.CONT SCH (14:00)
[2018-01-27] MEDS: Morphine Inj 30 MG/30 ML PCA.VIAL PCA PRN (14:00)
[2018-01-27] MEDS ORDERED: Enoxaparin Inj 40 MG/0.4 ML Syringe SQ SCH (17:00)
[2018-01-27] MEDS ORDERED: Phenylephrine/NS 1000 MCG/10ML Syringe IV.PUSH ONE (18:39)
[2018-01-27] MEDS ORDERED: Neostigmine Inj 5 MG/5 ML Syringe IV.PUSH ONE (18:39)
[2018-01-27] MEDS ORDERED: Glycopyrrolate Inj 1 MG/5 ML Syringe IV.PUSH ONE (18:39)
[2018-01-27] MEDS ORDERED: Lidocaine PF 1% Inj 5 ML Syringe INFILTRATN ONE (18:39)
[2018-01-28] MEDS: KCL 20 mEq/D5W/NaCl 0.45% Inj 1,000 ML IV.CONT SCH ×4 (00:06→19:58)
[2018-01-28 07:17] LABS: Baso % (Auto) 0.2 % (0.0-2.0); Hematocrit 40.1 % (35.0-46.0); Hemoglobin 13.6 gm/dL (11.6-15.3); Lymph # (Auto) 1.3 th/mm3 (1.0-4.8); Lymph % (Auto) 7.2 % (9.0-44.0); Mean Corpuscular HGB Conc 33.9 % (32.0-36.0); Mean Corpuscular Hemoglobin 29.5 pg (27.0-34.0); Mean Corpuscular Volume 87.1 fL (80.0-100.0); Mean Platelet Volume 9.2 fL (7.0-11.0); Mono # (Auto) 1.2 th/mm3 (0.0-0.9); Neut # (Auto) 15.2 th/mm3 (1.8-7.7); Neut % (Auto) 85.6 % (16.0-70.0); Platelet Count 274 th/mm3 (150-450); Red Cell Distribution Width 14.5 % (11.6-17.2); White Blood Count 17.7 th/mm3 (4.0-11.0)
[2018-01-28 07:42] LABS: Calcium 8.2 mg/dL (8.5-10.1); Potassium 4.1 meq/L (3.5-5.1)
[2018-01-28] MEDS ORDERED: Acetaminophen-HYDROcodone 325/7.5 Liq 15 ML UDC PO PRN (09:25)
[2018-01-28] MEDS: amLODIPine 5 MG Tablet PO SCH (11:04)
--- NOTE | 2018-01-28 11:57 | P.PN ---
Subjective Interval history: pt c/o incisional pain no cp no sob Physical Exam Vital signs: Vital Signs 01/27/18 13:11 01/27/18 13:15 01/27/18 13:30 Temperature 98.5 F Pulse Rate 100 H 94 H 76 Respiratory Rate 16 16 16 Blood Pressure 155/67 H 148/66 H 126/58 L Pulse Oximetry 98 96 96 01/27/18 13:45 01/27/18 14:00 01/27/18 14:15 Temperature Pulse Rate 78 78 78 Respiratory Rate 16 16 16 Blood Pressure 136/63 135/63 133/63 Pulse Oximetry 95 95 95 01/27/18 14:30 01/27/18 16:00 01/27/18 19:49 Temperature 97.3 F L 98.7 F Pulse Rate 76 87 73 Respiratory Rate 16 16 18 Blood Pressure 131/63 140/78 131/63 Pulse Oximetry 95 93 L 91 L 01/27/18 20:00 01/28/18 00:00 01/28/18 04:00 Temperature 98.5 F 98.6 F Pulse Rate 74 74 Respiratory Rate 18 18 Blood Pressure 125/69 129/67 Pulse Oximetry 92 L 93 L 92 L 01/28/18 08:00 01/28/18 09:25 Temperature 97.2 F L Pulse Rate 66 66 Respiratory Rate 18 18 Blood Pressure 140/95 H Pulse Oximetry 95 Intake & Output 01/27/18 01/28/18 01/28/18 18:59 06:59 18:59 Intake Total 4790 / 4790 2780 / 2780 200 / 200 Output Total 605 / 605 2004 Balance 4185 / 4185 775 / 775 200 / 200 Weight 145 kg Intake: IV 1530 / 1530 2300 / 2300 200 / 200 D5W/1/2NS + KCL 20 mEq Inj 1, 2000 / 2000 000 ML @ 125 mls/hr IV.CONT . Q8H [facility] Rx#:[id number] LR 1000 mL Inj 1,000 ML @ 30 1000 / 1000 mls/hr IV.SIG .Q24H [facility] Rx#: [id number] Ancef Inj 1,000 MG In NS Inj 100 / 100 100 / 100 100 / 100 100 ML @ 200 mls/hr IV.SIG Q8H [facility] Rx#:[id number] Ancef Inj 3,000 MG In NS Inj 230 / 230 100 ML @ 200 mls/hr IV.SIG [facility] Rx#:[id number] Flagyl 500 MG Inj 100 ML @ 100 200 / 200 100 / 100 100 / 100 mls/hr IV.SIG Q8H [facility] Rx#: [id number] Oral 60 / 60 480 / 480 Anesthesia Amount 3200 / 3200 Output: Urine 1940 / 1940 Urine Amount (Catheter) 575 / 575 Indwelling Urethral Catheter 575 / 575 Wound Drainage 65 / 65 # 1 Left Upper Abdomen 65 65 Other: Weight On Admission 145 kg - Constitutional no acute distress - Routine Abdominal Exam Present: soft, drain Comments: incisional tenderness suly serosang - Urinary Catheter Management Indwelling Urethral Catheter Cath placed during this visit: no Reason for continuing: Hourly intake/output Results - Labs CBC & Chem 7: 01/28/18 06:31 01/28/18 06:31 Laboratory Results - last 24 hr 01/28/18 01/28/18 06:31 06:31 WBC 17.7 H RBC 4.60 Hgb 13.6 Hct 40.1 MCV 87.1 MCH 29.5 MCHC 33.9 RDW 14.5 Plt Count 274 MPV 9.2 Neut % (Auto) 85.6 H Lymph % (Auto) 7.2 L [place] % (Auto) 7.0 Eos % (Auto) 0.0 Baso % (Auto) 0.2 Neut # (Auto) 15.2 H Lymph # (Auto) 1.3 [place] # (Auto) 1.2 H Eos # (Auto) 0.0 Baso # (Auto) 0.0 WBC Differential . Differential Comment Auto diff final Sodium 139 Potassium 4.1 Chloride 107 Carbon Dioxide 25.0 Anion Gap 7 BUN 8 Creatinine 0.82 Estimated GFR 72 L Random Glucose 134 H Calcium 8.2 L Magnesium 2.0 Assessment and Plan - Assessment (1) Morbid obesity Code(s): E66.01 - Morbid (severe) obesity due to excess calories Status: Acute Plan: follow protocol
[2018-01-28] MEDS: Morphine Inj 30 MG/30 ML PCA.VIAL PCA PRN (19:59)
[2018-01-29] MEDS: KCL 20 mEq/D5W/NaCl 0.45% Inj 1,000 ML IV.CONT SCH ×3 (01:32→16:18)
[2018-01-29] MEDS: Acetaminophen-HYDROcodone 325/7.5 Liq 15 ML UDC PO PRN ×4 (03:01→21:26)
[2018-01-29] MEDS: amLODIPine 5 MG Tablet PO SCH (08:09)
--- NOTE | 2018-01-29 14:14 | P.PNGS ---
Subjective Interval history: Going slow with fluids C/O reflux Physical Exam Vital signs: Vital Signs 01/28/18 16:00 01/28/18 20:27 01/29/18 00:40 Temperature 97.5 F L 97.6 F 98.0 F Pulse Rate 66 71 75 Respiratory Rate 17 18 18 Blood Pressure 114/68 158/72 H 157/69 H Pulse Oximetry 95 95 96 01/29/18 04:27 01/29/18 08:00 01/29/18 09:24 Temperature 97.9 F 97.5 F L Pulse Rate 77 74 Respiratory Rate 20 17 Blood Pressure 141/66 H 171/75 H Pulse Oximetry 96 94 L 96 01/29/18 10:19 01/29/18 12:00 Temperature 97.4 F L Pulse Rate 69 73 Respiratory Rate 18 16 Blood Pressure 123/56 L Pulse Oximetry 95 Intake & Output 01/28/18 01/29/18 01/29/18 18:59 06:59 18:59 Intake Total 1530 / 1530 2180 / 2180 Output Total 1000 / 1000 1000 / 1000 Balance 530 / 530 1180 / 1180 Intake: IV 1200 / 1200 2000 / 2000 D5W/1/2NS + KCL 20 mEq Inj 1, 1000 / 1000 2000 / 2000 000 ML @ 125 mls/hr IV.CONT . Q8H [facility] Rx#:[id number] Ancef Inj 1,000 MG In NS Inj 100 / 100 100 ML @ 200 mls/hr IV.SIG Q8H [facility] Rx#:[id number] Flagyl 500 MG Inj 100 ML @ 100 100 / 100 mls/hr IV.SIG Q8H [facility] Rx#: [id number] Oral 330 / 330 180 / 180 Output: Urine 1000 / 1000 1000 / 1000 Other: # Bowel Movements 0 - Constitutional no acute distress, morbidly obese - Routine Respiratory Exam Present: CTA bilaterally, distant breath sounds - Routine Cardiovascular Exam Present: RRR - Routine Abdominal Exam Present: soft, tenderness Comments: surgical incisions CDI, KARLA drain with small amount of serosanguineous drainage - Routine Extremities Exam Present: pulses intact - Urinary Catheter Management Indwelling Urethral Catheter Cath placed during this visit: no Reason for continuing: Hourly intake/output Assessment and Plan - Assessment (1) Status post biliopancreatic diversion with duodenal switch Code(s): Z98.84 - Bariatric surgery status Status: Acute Onset Date: ~ - Plan D/C [employer], transition to oral pain control Increase fluids to 60ml Q30min Change Reglan to scheduled and add Carafate Continue with frequent ambulation Code Status: Full Discussed Condition With: patient Discharge Planning: D/C home probably tomorrow - Attending Attestation The exam, history, and the medical decision-making described in the above note were completed with the assistance of the mid-level provider. I reviewed and agree with the findings presented. I attest that I had a [id number] encounter with the patient on the same day, and personally performed and documented my assessment and findings in the medical record.
[2018-01-29] MEDS: Sucralfate Liq 1 GM/10 ML UDC PO SCH ×2 (19:21→21:29)
[2018-01-30] MEDS: Acetaminophen-HYDROcodone 325/7.5 Liq 15 ML UDC PO PRN ×3 (03:27→15:40)
[2018-01-30] MEDS: KCL 20 mEq/D5W/NaCl 0.45% Inj 1,000 ML IV.CONT SCH ×3 (03:37→14:43)
[2018-01-30] MEDS: Sucralfate Liq 1 GM/10 ML UDC PO SCH ×3 (09:36→17:52)
[2018-01-30] MEDS: amLODIPine 5 MG Tablet PO SCH (09:36)
--- NOTE | 2018-01-30 17:46 | P.PNGS ---
Subjective Patient reports: no new complaints (nausea controlled tolerating liquids) Physical Exam Vital signs: Vital Signs 01/29/18 20:43 01/30/18 00:27 01/30/18 08:00 Temperature 97.3 F L 98.3 F 98.0 F Pulse Rate 78 74 76 Respiratory Rate 20 18 18 Blood Pressure 169/72 H 132/63 128/62 Pulse Oximetry 98 96 93 L 01/30/18 13:22 01/30/18 16:00 Temperature 97.6 F 97.6 F Pulse Rate 73 67 Respiratory Rate 18 18 Blood Pressure 132/60 145/68 H Pulse Oximetry 95 97 Intake & Output 01/29/18 01/30/18 01/30/18 18:59 06:59 18:59 Intake Total 1000 / 1000 1280 / 1280 1250 / 1250 Output Total 880 / 880 Balance 1000 / 1000 400 / 400 1250 / 1250 Intake: IV 1000 / 1000 1000 / 1000 1000 / 1000 D5W/1/2NS + KCL 20 mEq Inj 1, 1000 / 1000 1000 / 1000 1000 / 1000 000 ML @ 125 mls/hr IV.CONT . Q8H [facility] Rx#:[id number] Oral 280 / 280 Other 250 / 250 Output: Urine 840 / 840 Wound Drainage 40 / 40 # 1 Left Upper Abdomen 40 / 40 - Routine Abdominal Exam Present: soft (not tender nod distended, suly serosang) - Urinary Catheter Management Indwelling Urethral Catheter Cath placed during this visit: no Reason for continuing: Hourly intake/output Assessment and Plan - Assessment (1) Morbid obesity Code(s): E66.01 - Morbid (severe) obesity due to excess calories Status: Acute - Plan pt doing well d/c home f/u office next week
--- NOTE | 2018-02-01 19:42 | MP ---
cc: Luisito Conde MD DATE OF OPERATION: 01/27/2018 PREOPERATIVE DIAGNOSIS: Morbid obesity with a body mass index of 49, complicated by essential hypertension. POSTOPERATIVE DIAGNOSIS: Morbid obesity with a body mass index of 49, complicated by essential hypertension. PROCEDURE PERFORMED: Laparoscopic duodenal switch, 120 cm common channel, 150 cm alimentary limb. SURGEON: Luisito Conde MD CLINICAL DATA PROGRAMMER: Edmund Ramírez MD. Dr. Ramírez's assistance was necessary for the procedure due to the complexity of the operation. Dr. Ramírez assisted with manipulation and exposure during the procedure. The assistant surveyor provided by [employer] managed the camera during the procedure. Dr. Ramírez was present for the entire procedure. ANESTHESIA: General endotracheal anesthesia. ESTIMATED BLOOD LOSS: Scant. FINDINGS: Fatty liver. SPECIMENS: None. COMPLICATIONS: None. OPERATION IN DETAIL: The patient was brought to the operating room and placed on the operating table in a supine position. A bilateral sequential inflation device was placed on the lower extremities. General anesthesia was instituted. A Mendoza catheter was placed. Antibiotics were initiated. The abdomen was prepped and draped sterilely. A point in the periumbilical region was anesthetized with 0.25% Marcaine with epinephrine. A skin incision was made. A 5 mm Optiview port was placed under direct vision and pneumoperitoneum created. Under direct vision two 12 mm left upper quadrant and a 5 mm left lower quadrant port was placed. Two 12 mm right upper quadrant ports and a 5 mm epigastric port were placed. Prior to placement of all ports the skin and peritoneum were anesthetized with 0.25% Marcaine with epinephrine. The patient was placed in reverse Trendelenburg position. A Tamiko-Flex retractor was placed and the left lobe of the liver was retracted. The falciform ligament was taken out of the field using a 2-0 nylon suture. Attention was focused on the duodenum. The pylorus was identified. A point 3 cm distal along the duodenum was identified. The peritoneum both medially and laterally along the duodenal bulb was dissected minimally using the Harmonic scalpel. The posterior duodenal space was further dissected using a Gold Finger followed by the laparoscopic band passer. The duodenum was then stapled 3 cm distal to the pylorus using the Mastic Flex power stapler blue load. Bleeding points were controlled using the Harmonic. Attention was then focused on the stomach. The patient was placed with her left side up. The vasculature along the greater curvature of the stomach was using the Harmonic scalpel starting a distance of approximately 10 cm proximal to the pylorus. This was carried towards the angle of His. The angle of His was taken down sharply. The posterior ligamentous attachment was sharply . A 36-I[place]ic ViSiGi bougie was placed at the start of the case. Division of the stomach was then started approximately 10 cm proximal to the pylorus. This was performed using an Mastic Flex stapler. This was carried towards the angle of His to excise approximately 60% of the stomach. The bougie was used as a guide and the stapler at no point was hugging the bougie. The first firing was with a green load followed by three gold loads. All staple loads were reinforced with Seamguard. The gastrocolic ligament was then sutured to the posterior leaflet of the Seamguard. Attention was then focused on the lower abdomen. The patient was placed in Trendelenburg position. The ileocecal valve was identified. The bowel was measured proximally from the ileocecal valve to a distance of 120 cm. This was to be the common channel. This was marked with hemoclips. The regimen was carried further from this angel another 150 cm proximally. The small bowel was divided in this region using an Mastic Flex stapler white load. The distal segment was marked. It was then brought up to the duodenum and a duodenoileostomy was created using a single layer handsewn anastomosis. The biliopancreatic limb was then brought down to the clips that were marked initially at 120 cm and a ileoileostomy was created using an Mastic Flex stapler white load. Two firings were taken, one proximally and one distally to create the anastomosis. The defect was then closed in a single layer of running 2-0 Vicryl. The defect at the ileostomy in the mesentery was then closed with 2-0 silk suture in a running manner. Attention was then focused back at the duodenoileostomy. The bowel was clamped distal to the anastomosis. Methylene blue diluted with saline was instilled through the ViSiGi. The stomach was distended as well as the proximal bowel with no evidence of extravasation. A 10 round KARLA was placed posterior to the gastrojejunostomy and pulled out through the 5 mm port site in the left upper quadrant. Evicel was then placed over the duodenoileostomy and ileoileostomy. The Tamiko-Flex retractor was then removed. The CO2 was released. All ports were removed. All skin incisions were closed with 4-0 Monocryl. The patient was awakened and taken to the recovery room stable. MD ALEXANDRO Sapp/michael/berenice , 06:36 PM , 06:41 PM
--- NOTE | 2018-02-04 11:11 | P.DS ---
Date of admission: 01/27/18 05:27 Primary care physician: Eduarda Rosales MD, R3 Attending physician on discharge: Luisito Conde Brief History from admission: Ms. Richardson presented for elective laparoscopic biliopancreatic duodenal switch for morbid obesity. Associated comorbidities included hypertension, elevated cholesterol, and obstructive sleep apnea DS: Diagnosis - Discharge Diagnosis (1) Status post biliopancreatic diversion with duodenal switch Status: Acute DS: Medications - Discharge Medications Prescriptions: sucralfate 1 gm PO QID 14 Days #560 ml DS: Summary Hospital Course: The procedure was preformed successfully and the patient underwent normal post operative course. She was kept overnight for 1 extra day to ensure her nausea was under control and would able to maintain hydration at home. - Time Spent with Patient Total time spent providing and/or coordinating discharge services: Less than 30 minutes - Quality: VTE Deep Vein Thrombosis/Pulmonary Embolism Present on Admission: Yes Exam - Constitutional no acute distress, morbidly obese - Routine Abdominal Exam Present: soft Results Procedures completed during hospitalization: laparoscopic biliopancreatic duodenal switch - Additional Comments This patient was examined by Dr. Conde and this note was written on his behalf Discharge Plan - Discharge Disposition Patient Disposition: Discharge Home - Discharge Condition Condition: Stable - Discharge Order Discharge Orders: Discharge Order (Routine); Ordered 01/30/18 Ordered By: Luisito Conde General Surgery Clear for Discharge (Routine); Ordered 01/30/18 Ordered By: Luisito Conde - Physicians Team Primary Care Provider: Eduarda Rosales Attending Provider: Luisito Conde - Rxs /Orders / Referrals /Forms Prescriptions: New sucralfate 100 mg/mL Suspension 1 gm PO QID 14 Days Qty: 560 RF: 0 Continue amlodipine 5 mg Tablet 5 mg PO DAILY dabigatran etexilate [Pradaxa] 150 mg Capsule 150 mg PO BID gabapentin 600 mg Tablet 600 mg PO HS PRN (Reason: Pain) zolpidem [Ambien] 10 mg Tablet 10 mg PO HS Discontinued amoxicillin 500 mg Capsule 500 mg PO BID Referrals: Eduarda Rosales MD, R3 [Primary Care Provider] - See Instructions Luisito Conde MD [Physician] - 02/03/18 - Discharge Instructions Patient Printed Instructions: Nutrition after Bariatric Surgery (DC), Steristrips (ED)
== END 2018-01-30 18:40 | disposition home or self-care (01) ==
LOC: HSDI 05:27 → N07 15:45
PROVIDERS: ADMIT Surgery; ATTEND Surgery